=== PATIENT | male | born 1955 | race Caucasian/White ===

== ENCOUNTER 2023-01-18 09:02 | Emergency (ER) | payer OTHER, MEDICAID, SELFPAY ==
--- NOTE | ~2023-01-18 | CT_ITS ---
EXAMINATION: CT ABDOMEN AND PELVIS WITHOUT CONTRAST CLINICAL INFORMATION: Left flank pain COMPARISON: None available. TECHNIQUE: Multidetector volumetric imaging was performed from the superior aspect of the liver through the pubic symphysis. Sagittal and coronal reformatted images were obtained on the technologist's workstation. This CT examination was performed using dose optimization techniques as appropriate, variously including the following: *Automated exposure control *Adjustment of mA and/or kV according to patient size (this includes techniques or standardized protocols for targeted exams where dose is matched to indication/reason for exam; i.e. extremities or head) *Use of iterative reconstruction technique DLP: 637 mGy-cm FINDINGS: LUNG BASES: Bibasilar opacities, likely atelectasis. No pericardial or pleural effusion. LIVER, GALLBLADDER, AND BILIARY TREE: Hepatomegaly, right lobe measuring 17.9 cm. No focal hepatic lesion or biliary ductal dilatation is present. The gallbladder is unremarkable with no evidence of radiopaque gallstones, gallbladder wall thickening, or obvious pericholecystic inflammatory changes. PANCREAS: Unremarkable. SPLEEN: Unremarkable. ADRENAL GLANDS: Unremarkable. KIDNEYS AND URETERS: Small cysts in the upper pole right kidney. No renal calculi. No ureteral calculi. No hydronephrosis. Mild, left greater than right, perinephric stranding. BLADDER: Partially distended. Urinary bladder wall appears thickened/prominent . No radiopaque calculi seen. GASTROINTESTINAL TRACT: Stomach is nondistended. No small or large bowel obstruction. Small-moderate volume stool in the large colon. No acute bowel findings identified. Normal appendix. ABDOMINAL WALL: No significant hernia is appreciated. LYMPH NODES: No lymphadenopathy is identified in the abdomen or pelvis. Subcentimeter bilateral groin lymph nodes. VASCULAR: Abdominal aorta measures 3.1 cm. There is extensive severe atherosclerotic vascular calcification. PELVIC VISCERA: Prostate measures 4.4 cm transverse.. There are multiple surgical clips in the scrotal region. OSSEOUS STRUCTURES: Multilevel severe disc degenerative changes. Mild bilateral SI joint arthritis. CT/CT abdomen pelvis wo IV con IMPRESSION: 1. No evidence of renal or ureteral calculi. No hydroureteronephrosis. Mild bilateral perinephric stranding, more prominent on the left side. Clinically correlate, correlate to urinalysis. 2. Urinary bladder wall is thickened/prominent. This could be related to lack of distention versus cystitis. Clinically correlate. 3. Hepatomegaly. 4. Bibasilar atelectasis. 5. Abdominal aorta measures 3.1 cm. Recommend followup every 3 years. Reference: J Am Arya Radiol 2013; 10 (10): 789-794. 6 . Additional findings and details as above. Fleischner guidelines were followed.
[2023-01-18 09:11] VITALS: BP 143/67; BP 144/72; PULSE 56; PULSE 67; TEMP 36.8; O2SAT 97; BMI 28.7
--- NOTE | 2023-01-18 09:23 | PC.NURSE ---
pt a+o x4, he reports that he began having L flank pain yesterday, this morning bend down to pick something up off the floor and felt something pull in his back and left side, was not able to get up on his own. denies injury. hx of bypass, goes for walkd daily, denies pain prior to this incident. vss. pain 10/10 with movement.
--- NOTE | 2023-01-18 09:38 | ED.BACK ---
HPI - Back Pain/Injury General Chief Complaint: Back Pain/Injury Stated Complaint: BACK PAIN S/P TRYING TO STAND FROM LAYING PER EMS Time Seen by Provider: 01/18/23 09:17 Source: patient Limitations: no limitations History of Present Illness HPI Narrative: This is 67 years old male presented to the emergency department complaining of left flank pain left lower back pain since this morning. He has history of coronary artery disease status post CABG, he has history of hypercholesterolemia, he has history of peripheral vascular disease MD elicited complaint: back pain Onset (ago): hour(s) (3) Timing: constant Severity: moderate Quality: burning Location: lumbar spine Radiation: none Exacerbating factors: movement Relieving factors: none Associated symptoms: denies other symptoms Related Data Previous Rx's Medication Instructions Recorded cephalexin 500 mg capsule 500 mg PO Q8H 7 days #21 caps 01/18/23 oxycodone 5 mg capsule 5 mg PO Q8H PRN pain #12 caps 01/18/23 Allergies Allergy/AdvReac Type Severity Reaction Status Date / Time No Known Allergies Allergy Verified 01/18/23 09:29 Review of Systems Constitutional: Constitutional: Reports no additional constitutional complaints Cardiovascular: Cardiovascular: Reports no additional cardiovascular complaints Respiratory: Respiratory: Reports no additional respiratory complaints Musculoskeletal: Musculoskeletal: Reports as per HPI [facility] Past Medical History [facility] Narrative: CABG/coronary artery disease/hypercholesterolemia Social History Social History Alcohol intake: current Alcohol intake frequency: 3 or more drinks per day Alcohol type: hard liquor Smoked in Last 30 Days: Yes Use of substances other than those prescribed or required for medical reasons: No Advance Directives: Yes Advance Directives on File: No Physical Exam Vital Signs: Vital Signs: Last Vital Signs Temp 98.3 F 01/18/23 09:11 Pulse 55 01/18/23 14:00 Resp 13 01/18/23 14:00 BP 135/63 01/18/23 14:00 Pulse Ox 99 01/18/23 14:00 O2 Del Method Room Air 01/18/23 14:00 BMI result Body Mass Index 28.7 Patient looks well is not toxic-appearing Const: General: cooperative Nutritional Appearance: well nourished Orientation/consciousness: patient oriented x3 Limitations: no limitations HEENT: Head: Yes normal to inspection Face and sinus: Yes normal facial exam Mouth: Normal oral and palatal mucosa present Neck: Neck: Yes normal visual inspection and Yes full ROM Chest: Chest palpation & inspection: normal inspection of the chest Resp: Effort & Inspection: normal respiratory effort Auscultation: clear to auscultation bilaterally Cardio: Jugular venous distension: no JVD Rate: regular rate Rhythm: regular rhythm GI: Inspection: Yes normal to inspection Palpation (GI): Soft to palpation, not firm, nontender and no guarding Back/Spine/Pelvis: Other: Patient has tenderness in the left flank Neuro: General: patient oriented x3 Extrem: Other: Extremity examination shows pulses palpable by Doppler only Course Reevaluation(s) Reevaluation #1: doing better ambulating with walker at base line has cane and walker with the sit Time: 14:59 Reevaluation #2: The case was discussed with the rn case mgr Deirdre mercado arrange VNA and home PT. The patient wants to go home he did well with a walker in the emergency department he is very anxious to go home a comfortable with the plan of care Time: 15:36 Medications Administered Discontinued Medications Generic Name Dose Route Start Last Admin Trade Name Hugoq PRN Reason Stop Dose Admin Diazepam 2 mg 01/18/23 09:37 01/18/23 09:57 Diazepam 2 Mg Tablet PO 01/18/23 09:38 2 mg ONCE ONE Administration Hydromorphone HCl 0.5 mg 01/18/23 12:06 01/18/23 12:44 Hydromorphone Hcl 0.5 Mg/0.5 Ml Syringe IVPUSH 01/18/23 12:07 0.5 mg ONCE ONE Administration Protocol Ceftriaxone Sodium 1 gm/ 50 mls @ 100 mls/hr 01/18/23 11:21 01/18/23 14:07 Sodium Chloride IV 01/18/23 11:50 Infused ONCE ONE Infusion Ketorolac Tromethamine 15 mg 01/18/23 09:37 01/18/23 09:57 Ketorolac Tromethamine 15 Mg/Ml Vial IVPUSH 01/18/23 09:38 15 mg ONCE ONE Administration Medical Decision Making Medical Decision Making [facility] Narrative: Patient presented with lower back pain left flank pain we get the labs/UA/a CT scan Differential Diagnosis Differential Diagnoses: The differential diagnosis associated with the presentation includes Renal colic/herniated disk Admission/Observation Consideration of admission/observation: Escalation of care including admission/observation considered Consult Healthcare Provider Spoke with the rn case mgr Lab Data MDM Lab Attestation statement: I reviewed the patient's lab results. 01/18/23 09:48 01/18/23 12:37 Labs: Lab Results 01/18/23 01/18/23 01/18/23 Range/Units 09:47 09:48 09:59 WBC 8.0 (4.8-10.8) X10*3/uL RBC 4.09 L (4.60-5.80) X10*6/uL Hgb 13.9 L (14.0-18.0) g/dl Hct 40.2 L (42.0-52.0) % MCV 98.3 H (80.0-98.0) fL MCH 34.0 H (27.0-33.0) pg MCHC 34.6 (31.0-36.0) g/dl RDW 12.9 (11.0-16.0) % Plt Count 220 (160-400) X10*3/uL MPV 9.8 (9.4-12.4) fL Immature Gran % (Auto) 0.4 (0.0-0.4) % Neut % (Auto) 64.4 (45-73) % Lymph % (Auto) 21.7 (20-40) % [place] % (Auto) 8.4 (2-11) % Eos % (Auto) 4.3 H (0-4) % Baso % (Auto) 0.8 (0-2) % Lymph # (Auto) 1.7 (1.2-4.9) X10*3/uL [place] # (Auto) 0.7 (0.1-1.2) X10*3/uL Eos # (Auto) 0.3 (0.0-0.4) X10*3/uL Baso # (Auto) 0.1 (0.0-0.2) X10*3/uL Abs Immat Gran (auto) 0.03 (0.00-0.03) X10*3/uL Absolute Neuts (auto) 5.1 (2.0-8.3) x10*3/uL Absolute Nucleated RBC 0.000 (0.0-0.012) X10*3/uL Nucleated RBC % (auto) 0.0 (0.0-0.2) /100WBC ESR 19 H (0-15) MM/HR Sodium (135-145) mmol/L Potassium (3.3-5.1) mmol/L Chloride (96-108) mmol/L Carbon Dioxide (22-29) mmol/L Anion Gap (12-20) BUN (9-16) mg/dL Creatinine (0.5-1.4) mg/dL Estim Creat Clear Calc Estimated GFR Random Glucose (60-115) mg/dL Lactic Acid (0.5-2.0) mmol/L Calcium (8.4-10.2) mg/dL Total Bilirubin (0.0-1.0) mg/dL AST (5-37) U/L ALT (0-40) U/L Alkaline Phosphatase (39-117) U/L Total Protein (6.5-8.0) g/dL Albumin (3.5-5.0) g/dL Urine Color Yellow Urine Appearance Cloudy Urine pH 5.5 (5.0-9.0) Ur Specific [place] 1.020 (1.005-1.025) Urine Protein 30 (1+) H (Neg-Trace) mg/dL Urine Glucose (UA) Negative (Negative) mg/dL Urine Ketones Negative (Negative) mg/dL Urine Blood Small (1+) H (Negative) Urine Nitrite Negative (Negative) Ur Leukocyte Esterase Large (3+) H (Negative) Urine RBC 6-10 H (0-2) /HPF Urine WBC >50 H (0-5) /HPF Ur Squamous Epith Cells 0-2 (0-2) /HPF Urine Bacteria None Seen (None Seen) Hyaline Casts 0-2 (0-2) /LPF 01/18/23 01/18/23 Range/Units 12:37 12:37 WBC (4.8-10.8) X10*3/uL RBC (4.60-5.80) X10*6/uL Hgb (14.0-18.0) g/dl Hct (42.0-52.0) % MCV (80.0-98.0) fL MCH (27.0-33.0) pg MCHC (31.0-36.0) g/dl RDW (11.0-16.0) % Plt Count (160-400) X10*3/uL MPV (9.4-12.4) fL Immature Gran % (Auto) (0.0-0.4) % Neut % (Auto) (45-73) % Lymph % (Auto) (20-40) % [place] % (Auto) (2-11) % Eos % (Auto) (0-4) % Baso % (Auto) (0-2) % Lymph # (Auto) (1.2-4.9) X10*3/uL [place] # (Auto) (0.1-1.2) X10*3/uL Eos # (Auto) (0.0-0.4) X10*3/uL Baso # (Auto) (0.0-0.2) X10*3/uL Abs Immat Gran (auto) (0.00-0.03) X10*3/uL Absolute Neuts (auto) (2.0-8.3) x10*3/uL Absolute Nucleated RBC (0.0-0.012) X10*3/uL Nucleated RBC % (auto) (0.0-0.2) /100WBC ESR (0-15) MM/HR Sodium 139 (135-145) mmol/L Potassium 4.8 (3.3-5.1) mmol/L Chloride 108 (96-108) mmol/L Carbon Dioxide 23 (22-29) mmol/L Anion Gap 13 (12-20) BUN 18 H (9-16) mg/dL Creatinine 0.89 (0.5-1.4) mg/dL Estim Creat Clear Calc 103.8 Estimated GFR > 60 Random Glucose 87 (60-115) mg/dL Lactic Acid 1.0 (0.5-2.0) mmol/L Calcium 9.3 (8.4-10.2) mg/dL Total Bilirubin 0.7 (0.0-1.0) mg/dL AST 26 (5-37) U/L ALT 26 (0-40) U/L Alkaline Phosphatase 60 (39-117) U/L Total Protein 7.3 (6.5-8.0) g/dL Albumin 3.7 (3.5-5.0) g/dL Urine Color Urine Appearance Urine pH (5.0-9.0) Ur Specific [place] (1.005-1.025) Urine Protein (Neg-Trace) mg/dL Urine Glucose (UA) (Negative) mg/dL Urine Ketones (Negative) mg/dL Urine Blood (Negative) Urine Nitrite (Negative) Ur Leukocyte Esterase (Negative) Urine RBC (0-2) /HPF Urine WBC (0-5) /HPF Ur Squamous Epith Cells (0-2) /HPF Urine Bacteria (None Seen) Hyaline Casts (0-2) /LPF Independent Interpretation I performed an independent interpretation of an: CT Scan Interpretation: No hydronephrosis Radiology Impression Discussion of test interpretation with radiology: I have reviewed the radiologist's reading. Radiologist Impression: [address] [address] [address] Scan Report Signed Patient: Joao Martin MR#: [id number] : 1955 Acct:[id number] Age/Sex: 67 / M ADM Date: 01/18/23 Loc: .ED Attending Dr: Ordering Physician: Sae Metz MD Date of Service: 01/18/23 Procedure(s): CT abdomen pelvis wo IV con Accession Number(s): [id number] cc: Sae Metz MD~ EXAMINATION: CT ABDOMEN AND PELVIS WITHOUT CONTRAST? CLINICAL INFORMATION: Left flank pain? COMPARISON: None available. TECHNIQUE: Multidetector volumetric imaging was performed from the superior aspect of the liver through the pubic symphysis. Sagittal and coronal reformatted images were obtained on the technologist's workstation.? This CT examination was performed using dose optimization techniques as appropriate, variously including the following: *Automated exposure control *Adjustment of mA and/or kV according to patient size (this includes techniques or standardized protocols for targeted exams where dose is matched to indication/reason for exam; i.e. extremities or head) *Use of iterative reconstruction technique DLP: 637 mGy-cm FINDINGS: LUNG BASES: Bibasilar opacities, likely atelectasis. No pericardial or pleural effusion.? LIVER, GALLBLADDER, AND BILIARY TREE: Hepatomegaly, right lobe measuring 17.9 cm. No focal hepatic lesion or biliary ductal dilatation is present. The gallbladder is unremarkable with no evidence of radiopaque gallstones, gallbladder wall thickening, or obvious pericholecystic inflammatory changes.? PANCREAS: Unremarkable.? SPLEEN: Unremarkable.? ADRENAL GLANDS: Unremarkable.? KIDNEYS AND URETERS: Small cysts in the upper pole right kidney. No renal calculi. No ureteral calculi. No hydronephrosis. Mild, left greater than right, perinephric stranding. BLADDER: Partially distended. Urinary bladder wall appears thickened/prominent . No radiopaque calculi seen.? GASTROINTESTINAL TRACT: Stomach is nondistended. No small or large bowel obstruction. Small-moderate volume stool in the large colon. No acute bowel findings identified. Normal appendix. ABDOMINAL WALL: No significant hernia is appreciated.? LYMPH NODES: No lymphadenopathy is identified in the abdomen or pelvis. Subcentimeter bilateral groin lymph nodes. VASCULAR: Abdominal aorta measures 3.1 cm. There is extensive severe atherosclerotic vascular calcification. PELVIC VISCERA: Prostate measures 4.4 cm transverse.. There are multiple surgical clips in the scrotal region. OSSEOUS STRUCTURES: Multilevel severe disc degenerative changes. Mild bilateral SI joint arthritis.? CT/CT abdomen pelvis wo IV con IMPRESSION: ? 1. No evidence of renal or ureteral calculi. No hydroureteronephrosis. Mild bilateral perinephric stranding, more prominent on the left side. Clinically correlate, correlate to urinalysis. ? 2. Urinary bladder wall is thickened/prominent. This could be related to lack of distention versus cystitis. Clinically correlate. ? 3. Hepatomegaly. ? 4. Bibasilar atelectasis. ? 5. Abdominal aorta measures 3.1 cm. Recommend followup every 3 years. Reference: J Am Arya Radiol 2013; 10 (10): 789-794.? ? 6 . Additional findings and details as above. ? Fleischner guidelines were followed. Discharge Plan Discharge Clinical Impression: Acute UTI, Back pain Patient Disposition: Home, Self-Care Instructions: Urinary Tract Infection in Men (ED) Additional Instructions: Follow-up with your primary care physician call tomorrow make an appointment return if you worse Prescriptions: New cephalexin 500 mg capsule 500 mg PO Q8H 7 Days Qty: 21 0RF oxycodone 5 mg capsule 5 mg PO Q8H PRN (Reason: pain) Qty: 12 0RF Rx Instructions: Partial Fill upon patient request. Referrals: Physician,Unknown J [Primary Care Provider] - 2 days
[2023-01-18 09:53] LABS: MANUAL DIFF FLAG NO
[2023-01-18] MEDS: diazePAM 2 MG TABLET PO (09:57)
[2023-01-18] MEDS: Ketorolac Tromethamine 15 MG/ML VIAL IVPUSH (09:57)
[2023-01-18 10:09] LABS: Basophils Absolute Auto 0.1 X10*3/uL (0.0-0.2); Basophils Percent Auto 0.8 % (0-2); Eosinophils Absolute Auto 0.3 X10*3/uL (0.0-0.4); Eosinophils Percent Auto 4.3 % (0-4); Hematocrit 40.2 % (42.0-52.0); Hemoglobin 13.9 g/dl (14.0-18.0); Imm Gran Abs Auto 0.03 X10*3/uL (0.00-0.03); Imm Gran Pct Auto 0.4 % (0.0-0.4); Lymphocytes Absolute Auto 1.7 X10*3/uL (1.2-4.9); Lymphocytes Percent Auto 21.7 % (20-40); Mean Corpuscular HGB Conc 34.6 g/dl (31.0-36.0); Mean Corpuscular Volume 98.3 fL (80.0-98.0); Mean Platelet Volume 9.8 fL (9.4-12.4); Monocytes Absolute Auto 0.7 X10*3/uL (0.1-1.2); Monocytes Percent Auto 8.4 % (2-11); Neutrophils Absolute Auto 5.1 x10*3/uL (2.0-8.3); Neutrophils Percent Auto 64.4 % (45-73); Platelet Count 220 X10*3/uL (160-400); Red Blood Count 4.09 X10*6/uL (4.60-5.80); Red Cell Distribution Width 12.9 % (11.0-16.0)
[2023-01-18 10:15] LABS: Appearance Urine Cloudy; Color Urine Yellow; Glucose Urine UA Negative (Negative); Leukocyte Esterase Urine Large (3+) (Negative); Nitrite Urine Negative (Negative); PH 5.5 (5.0-9.0); UMIC TRIGGER UACC YES; Urine Blood Small (1+) (Negative); Urine Ketones Negative (Negative); Urine Protein 30 (1+) mg/dL (Neg-Trace)
[2023-01-18 10:18] LABS: Bacteria Urine None Seen (None Seen); Hyaline Casts Urine 0-2 /LPF (0-2); Squamous Epithelial Cell Urine 0-2 /HPF (0-2); UACC Culture Trigger YES; WBC Urine >50 /HPF (0-5)
[2023-01-18 10:45] LABS: Erythrocyte Sedimentation Rate 19 MM/HR (0-15)
[2023-01-18] MEDS: HYDROmorphone HCl 0.5 MG/0.5 ML SYRINGE IVPUSH (12:44)
[2023-01-18] MEDS: cefTRIAXone sodium 1 GM in 0.9 % Sodium Chloride 50 ML IV (12:48)
[2023-01-18 12:52] VITALS: BP 145/79; PULSE 54; RESP 13; O2SAT 97
--- NOTE | 2023-01-18 12:53 | PC.NURSE ---
pain meds given, iv antibiotic started as ordered. pt resting comfortably, no apparent distress. 10/10 pain at this time.
[2023-01-18 12:58] LABS: Anion Gap 13 (12-20)
[2023-01-18 13:03] LABS: Alanine Aminotransferase 26 U/L (0-40); Albumin Level 3.7 g/dL (3.5-5.0); Alkaline Phosphatase 60 U/L (39-117); Aspartate Amino Transferase 26 U/L (5-37); Bilirubin Total 0.7 mg/dL (0.0-1.0); Blood Urea Nitrogen 18 mg/dL (9-16); Calcium 9.3 mg/dL (8.4-10.2); Carbon Dioxide 23 mmol/L (22-29); Chloride 108 mmol/L (96-108); Creatinine Clr Calc Pharmacy 103.8; Estimated Glomerular Filt Rate > 60; Glucose Random 87 mg/dL (60-115); Potassium 4.8 mmol/L (3.3-5.1); Sodium 139 mmol/L (135-145); Total Protein 7.3 g/dL (6.5-8.0)
[2023-01-18 14:00] VITALS: BP 135/63; PULSE 55; RESP 13; O2SAT 99
--- NOTE | 2023-01-18 16:06 | PC.NURSE ---
pt cleared for discharge, pt does not have ride home and does not qualified for chair van. will reach out to mechanical maintenance supervisor regarding lyft voucher.
--- NOTE | 2023-01-18 17:33 | PC.NURSE ---
pt ambulated to waiting room using walker with staff in close contact. waiting on lyft.
--- NOTE | 2023-01-20 10:14 | MHC.CM.ED ---
LATE ENTRY FROM 01/19 AT 12PM: Received case management consult over the weekend requesting referral to VNA be made. T/W spoke with patient via telephone. Patient aware referral will have to be broadcasted due to insurance ([employer]). [facility] is able to accept patient.
== END 2023-01-18 18:30 | disposition home or self-care (01) ==
PROVIDERS: Emergency Provider Emergency Medicine; PCP Pediatrics
DX: N39.0 Urinary tract infection, site not specified (principal); M54.50 Low back pain, unspecified; R10.9 Unspecified abdominal pain; Z79.899 Other long term (current) drug therapy
CPT/HCPCS: 36415; 74176; 80053; 81001; 83605; 85025; 85652; 87040; 87086; 87147; 96365; 96375; 99284; 99285; J0696; J1170; J1885

== ENCOUNTER 2023-01-21 11:40 | Emergency (ER) | payer OTHER, MEDICARE, MEDICAID, SELFPAY ==
[2023-01-21 11:58] VITALS: BP 150/80; PULSE 56; O2SAT 99
--- NOTE | 2023-01-21 11:58 | ED_ITS ---
HPI - Abdominal Pain General Chief Complaint: Abdominal Pain <JOSE Monte - Last Filed: 01/21/23 12:00> Stated Complaint: R side flank pain per EMS <JOSE Monte - Last Filed: 01/21/23 12:00> Time Seen by Provider: 01/21/23 17:05 <JOSE Monte - Last Filed: 01/21/23 12:00> Source: patient, RN notes reviewed and old records reviewed <Richy Short - Last Filed: 01/21/23 17:27> Mode of arrival: EMS <Richy Short - Last Filed: 01/21/23 17:27> Limitations: no limitations <Richy Short - Last Filed: 01/21/23 17:27> History of Present Illness HPI narrative: 67-year-old male presents for evaluation of left lower back/ left flank p ain. patient was seen here 3 days ago for similar. He had a thorough workup that included labs, UA and a CT scan the abdomen pelvis. He was diagnosed with an uncomplicated UTI the patient was discharged with cephalexin and oxycodone the patient reports he was unable to take any of his medications because I could not get to the pharmacy to get. He reports that his aide will be able to get his prescriptions either tonight or tomorrow at the latest he has been taking Advil for his pain in the meantime which has had minimal relief denies any fevers, chills <Richy Short - Last Filed: 01/21/23 17:27> Related Data Home Medications: Previous Rx's Medication Instructions Recorded cephalexin 500 mg capsule 500 mg PO Q8H 7 days #21 caps 01/18/23 oxycodone 5 mg capsule 5 mg PO Q8H PRN pain #12 caps 01/18/23 <JOSE Monte - Last Filed: 01/21/23 12:00> Allergies/Adverse Reactions: Allergies Allergy/AdvReac Type Severity Reaction Status Date / Time No Known Allergies Allergy Verified 01/18/23 09:29 <JOSE Monte - Last Filed: 01/21/23 12:00> Review of Systems Constitutional: Reports as per HPI, Denies chills, Denies fatigue, Denies fever(s) and Denies headache(s) <Richy Short - Last Filed: 01/21/23 17:27> Denies headache(s) <Richy Short - Last Filed: 01/21/23 17:27> Cardiovascular: Denies chest pain and Denies dyspnea <Richy Short - Last Filed: 01/21/23 17:27> Respiratory: Denies cough and Denies dyspnea <Richy Short - Last Filed: 01/21/23 17:27> Gastrointestinal: Denies abdominal pain, Denies constipation and Denies vomiting <Richy Short - Last Filed: 01/21/23 17:27> Genitourinary: Denies difficulty urinating <Richy Short - Last Filed: 01/21/23 17:27> Denies headache(s) and Denies focal weakness <Richy Short - Last Filed: 01/21/23 17:27> Endocrine: Denies fatigue <Richy Short - Last Filed: 01/21/23 17:27> [facility] Social History Social History: Social History Alcohol intake: current Alcohol intake frequency: 0-2 drinks per day Alcohol type: hard liquor Smoked in Last 30 Days: Yes Use of substances other than those prescribed or required for medical reasons: Yes Substance Use Type: Marijuana Advance Directives: Yes Advance Directives on File: Yes Advance Directives Date on File: 01/19/23 <JOSE Monte - Last Filed: 01/21/23 12:00> Physical Exam ED Vital Signs: Vital Signs - 24 hr 01/21/23 12:23 01/21/23 17:14 Temperature 97.7 F Pulse Rate 55 98 Respiratory Rate 16 18 Blood Pressure 136/72 156/69 H Pulse Oximetry 99 99 Oxygen Delivery Method Room Air Room Air BMI result Body Mass Index 29.5 <JOSE Monte - Last Filed: 01/21/23 12:00> Vital Signs - 24 hr 01/21/23 12:23 01/21/23 17:14 Temperature 97.7 F Pulse Rate 55 98 Respiratory Rate 16 18 Blood Pressure 136/72 156/69 H Pulse Oximetry 99 99 Oxygen Delivery Method Room Air Room Air BMI result Body Mass Index 29.5 <Richy Short - Last Filed: 01/21/23 17:27> Const General: comfortable, no acute distress, alert, awake and poor hygiene; No well groomed <Richy Short - Last Filed: 01/21/23 17:27> Nutritional Appearance: well nourished <Richy Short - Last Filed: 01/21/23 17:27> Orientation/consciousness: patient oriented x3 <Richy Gaspary - Last Filed: 01/21/23 17:27> Resp Effort & Inspection: normal respiratory effort, able to speak in complete sentences, no audible wheezes and not labored <Richy Short - Last Filed: 01/21/23 17:27> Auscultation: clear to auscultation bilaterally <Richy Short - Last Filed: 01/21/23 17:27> Cardio Rate: regular rate <Richy Short - Last Filed: 01/21/23 17:27> Rhythm: regular rhythm <Richy Short - Last Filed: 01/21/23 17:27> GI Inspection: No distended <Richy Short - Last Filed: 01/21/23 17:27> Palpation (GI): Soft to palpation, not firm, nontender, no guarding and not rigid <Richy Short - Last Filed: 01/21/23 17:27> Auscultation: normoactive bowel sounds <Richy Short - Last Filed: 01/21/23 17:27> Back/Spine/Pelvis Other: patient is tender to palpation in the left lumbar paraspinous region. No CVA tenderness. <Richy Short - Last Filed: 01/21/23 17:27> Skin General skin exam: no rashes or lesions noted and elasticity normal <Richy Short - Last Filed: 01/21/23 17:27> Neuro General: patient oriented x3 <Richy Short - Last Filed: 01/21/23 17:27> Cranial nerves: Yes CN's II-XII intact bilaterally and Yes Bilaterally intact EOM present <Richy Short - Last Filed: 01/21/23 17:27> Cognition (Neuro): normal cognition <Richy Short - Last Filed: 01/21/23 17:27> Extrem Other: Moving all extremities well without any obvious deformities <Richy Short - Last Filed: 01/21/23 17:27> Course Course Course Narrative: RME - 67 yo male who was seen here on 01/18 for UTI presents to the ER for evaluation of worsening left flank pain. he did not take his antibiotics that were prescribed. Labs reviewed and his urine culture grew group B strep. Poorly kempt and smells of urine. Plan: labs, lactic and blood cultures. <JOSE Monte - Last Filed: 01/21/23 12:00> Medical Decision Making Medical Decision Making [facility] Narrative: Patient has tenderness in the left lumbar region, not quite the left flank. I feel the patient's back pain is more musculoskeletal and not related to his UTI. I reviewed the patient's workup from 3 days ago. He did appear to have a mild UTI. The culture resulted which shows strep agalactiae group B. T herefore, cephalexin he was prescribed should be adequate coverage. The patient is confident that he will be able to get his prescription by tomorrow. His vital signs are currently stable and his labs are unchanged from yesterday. There is no evidence of sepsis. We will give the patient a dose of ceftriaxone IV and a dose of the oxycodone he was prescribed and he will be discharged. he is comfortable with this plan. <Richy Short - Last Filed: 01/21/23 17:27> Differential Diagnosis UTI Pyelonephritis Muscle strain Obstructive uropathy <Richy Short - Last Filed: 01/21/23 17:27> Lab Data [facility] Lab Attestation statement: I reviewed the patient's lab results. <Richy BrowneKurtPrince William - Last Filed: 01/21/23 17:27> Result Diagrams: 01/21/23 12:20 01/21/23 12:20 <JOSE Monte - Last Filed: 01/21/23 12:00> Labs: Lab Results 01/21/23 01/21/23 01/21/23 Range/Units 12:20 12:20 12:20 WBC 8.9 (4.8-10.8) X10*3/uL RBC 4.06 L (4.60-5.80) X10*6/uL Hgb 13.6 L (14.0-18.0) g/dl Hct 40.5 L (42.0-52.0) % MCV 99.8 H (80.0-98.0) fL MCH 33.5 H (27.0-33.0) pg MCHC 33.6 (31.0-36.0) g/dl RDW 13.2 (11.0-16.0) % Plt Count 207 (160-400) X10*3/uL MPV 10.0 (9.4-12.4) fL Immature Gran % (Auto) 0.2 (0.0-0.4) % Neut % (Auto) 61.5 (45-73) % Lymph % (Auto) 27.4 (20-40) % [place] % (Auto) 7.9 (2-11) % Eos % (Auto) 2.4 (0-4) % Baso % (Auto) 0.6 (0-2) % Lymph # (Auto) 2.4 (1.2-4.9) X10*3/uL [place] # (Auto) 0.7 (0.1-1.2) X10*3/uL Eos # (Auto) 0.2 (0.0-0.4) X10*3/uL Baso # (Auto) 0.1 (0.0-0.2) X10*3/uL Abs Immat Gran (auto) 0.02 (0.00-0.03) X10*3/uL Absolute Neuts (auto) 5.5 (2.0-8.3) x10*3/uL Absolute Nucleated RBC 0.000 (0.0-0.012) X10*3/uL Nucleated RBC % (auto) 0.0 (0.0-0.2) /100WBC Sodium 138 (135-145) mmol/L Potassium 5.3 H (3.3-5.1) mmol/L Chloride 108 (96-108) mmol/L Carbon Dioxide 21 L (22-29) mmol/L Anion Gap 14 (12-20) BUN 22 H (9-16) mg/dL Creatinine 0.92 (0.5-1.4) mg/dL Estim Creat Clear Calc 101.7 Estimated GFR > 60 Random Glucose 84 (60-115) mg/dL Lactic Acid 1.7 (0.5-2.0) mmol/L Calcium 8.9 (8.4-10.2) mg/dL Magnesium 2.0 (1.6-2.6) mg/dL Total Bilirubin 0.5 (0.0-1.0) mg/dL Direct Bilirubin 0.2 (0.0-0.5) mg/dL AST 40 H (5-37) U/L ALT 31 (0-40) U/L Alkaline Phosphatase 55 (39-117) U/L Total Protein 7.7 (6.5-8.0) g/dL Albumin 3.9 (3.5-5.0) g/dL <JOSE Monte - Last Filed: 01/21/23 12:00> Lab Results 01/21/23 01/21/23 01/21/23 Range/Units 12:20 12:20 12:20 WBC 8.9 (4.8-10.8) X10*3/uL RBC 4.06 L (4.60-5.80) X10*6/uL Hgb 13.6 L (14.0-18.0) g/dl Hct 40.5 L (42.0-52.0) % MCV 99.8 H (80.0-98.0) fL MCH 33.5 H (27.0-33.0) pg MCHC 33.6 (31.0-36.0) g/dl RDW 13.2 (11.0-16.0) % Plt Count 207 (160-400) X10*3/uL MPV 10.0 (9.4-12.4) fL Immature Gran % (Auto) 0.2 (0.0-0.4) % Neut % (Auto) 61.5 (45-73) % Lymph % (Auto) 27.4 (20-40) % [place] % (Auto) 7.9 (2-11) % Eos % (Auto) 2.4 (0-4) % Baso % (Auto) 0.6 (0-2) % Lymph # (Auto) 2.4 (1.2-4.9) X10*3/uL [place] # (Auto) 0.7 (0.1-1.2) X10*3/uL Eos # (Auto) 0.2 (0.0-0.4) X10*3/uL Baso # (Auto) 0.1 (0.0-0.2) X10*3/uL Abs Immat Gran (auto) 0.02 (0.00-0.03) X10*3/uL Absolute Neuts (auto) 5.5 (2.0-8.3) x10*3/uL Absolute Nucleated RBC 0.000 (0.0-0.012) X10*3/uL Nucleated RBC % (auto) 0.0 (0.0-0.2) /100WBC Sodium 138 (135-145) mmol/L Potassium 5.3 H (3.3-5.1) mmol/L Chloride 108 (96-108) mmol/L Carbon Dioxide 21 L (22-29) mmol/L Anion Gap 14 (12-20) BUN 22 H (9-16) mg/dL Creatinine 0.92 (0.5-1.4) mg/dL Estim Creat Clear Calc 101.7 Estimated GFR > 60 Random Glucose 84 (60-115) mg/dL Lactic Acid 1.7 (0.5-2.0) mmol/L Calcium 8.9 (8.4-10.2) mg/dL Magnesium 2.0 (1.6-2.6) mg/dL Total Bilirubin 0.5 (0.0-1.0) mg/dL Direct Bilirubin 0.2 (0.0-0.5) mg/dL AST 40 H (5-37) U/L ALT 31 (0-40) U/L Alkaline Phosphatase 55 (39-117) U/L Total Protein 7.7 (6.5-8.0) g/dL Albumin 3.9 (3.5-5.0) g/dL <Richy Short - Last Filed: 01/21/23 17:27> Discharge Plan Discharge Clinical Impression: Acute UTI, Back pain <JOSE Monte - Last Filed: 01/21/23 12:00> Patient Disposition: Home, Self-Care <JOSE Monte - Last Filed: 01/21/23 12:00> Instructions: Urinary Tract Infection in Men (ED) <JOSE Monte - Last Filed: 01/21/23 12:00> Additional Instructions: your workup today was unchanged from 3 days ago. It is important that you get your prescriptions picked up to treat your back pain and your UTI. you were given a dose of IV antibiotics today, but you need to start your antibiotics tomorrow follow-up with your primary doctor <JOSE Monte - Last Filed: 01/21/23 12:00> Prescriptions: No Action cephalexin 500 mg capsule 500 mg PO Q8H 7 Days Qty: 21 0RF oxycodone 5 mg capsule 5 mg PO Q8H PRN (Reason: pain) Qty: 12 0RF Rx Instructions: Partial Fill upon patient request. <JOSE Monte - Last Filed: 01/21/23 12:00>
[2023-01-21 12:23] VITALS: BP 136/72; PULSE 55; RESP 16; TEMP 36.5; O2SAT 99; BMI 29.5
[2023-01-21 12:27] LABS: MANUAL DIFF FLAG NO
[2023-01-21 12:32] LABS: Basophils Absolute Auto 0.1 X10*3/uL (0.0-0.2); Basophils Percent Auto 0.6 % (0-2); Eosinophils Absolute Auto 0.2 X10*3/uL (0.0-0.4); Eosinophils Percent Auto 2.4 % (0-4); Hematocrit 40.5 % (42.0-52.0); Hemoglobin 13.6 g/dl (14.0-18.0); Imm Gran Abs Auto 0.02 X10*3/uL (0.00-0.03); Imm Gran Pct Auto 0.2 % (0.0-0.4); Lymphocytes Absolute Auto 2.4 X10*3/uL (1.2-4.9); Lymphocytes Percent Auto 27.4 % (20-40); Mean Corpuscular HGB Conc 33.6 g/dl (31.0-36.0); Mean Corpuscular Hemoglobin 33.5 pg (27.0-33.0); Mean Corpuscular Volume 99.8 fL (80.0-98.0); Monocytes Absolute Auto 0.7 X10*3/uL (0.1-1.2); Monocytes Percent Auto 7.9 % (2-11); Neutrophils Absolute Auto 5.5 x10*3/uL (2.0-8.3); Neutrophils Percent Auto 61.5 % (45-73); Platelet Count 207 X10*3/uL (160-400); Red Blood Count 4.06 X10*6/uL (4.60-5.80); Red Cell Distribution Width 13.2 % (11.0-16.0); White Blood Count 8.9 X10*3/uL (4.8-10.8)
[2023-01-21 12:39] LABS: Lactic Acid 1.7 mmol/L (0.5-2.0)
[2023-01-21 12:48] LABS: Alanine Aminotransferase 31 U/L (0-40); Albumin Level 3.9 g/dL (3.5-5.0); Alkaline Phosphatase 55 U/L (39-117); Anion Gap 14 (12-20); Aspartate Amino Transferase 40 U/L (5-37); Bilirubin Direct 0.2 mg/dL (0.0-0.5); Bilirubin Total 0.5 mg/dL (0.0-1.0); Blood Urea Nitrogen 22 mg/dL (9-16); Calcium 8.9 mg/dL (8.4-10.2); Carbon Dioxide 21 mmol/L (22-29); Chloride 108 mmol/L (96-108); Creatinine Clr Calc Pharmacy 101.7; Estimated Glomerular Filt Rate > 60; Glucose Random 84 mg/dL (60-115); Potassium 5.3 mmol/L (3.3-5.1); Sodium 138 mmol/L (135-145); Total Protein 7.7 g/dL (6.5-8.0)
[2023-01-21 17:14] VITALS: BP 156/69; PULSE 98; RESP 18; O2SAT 99
--- NOTE | 2023-01-21 17:18 | PC.NURSE ---
alert and oriented. complains of back pain. Discharged 01/18 from ed with script for abt for uti. Did not flower picker script - stating home health aid was going to pick it up today. Incontinent of urine.
[2023-01-21] MEDS: oxyCODONE HCl Immed Release 5 MG TABLET PO (17:50)
[2023-01-21] MEDS: cefTRIAXone sodium 1 GM in 0.9 % Sodium Chloride 50 ML IV (17:51)
[2023-01-21 18:15] LABS: Appearance Urine Clear; Color Urine Yellow; Glucose Urine UA Negative (Negative); Leukocyte Esterase Urine Trace (Negative); Nitrite Urine Negative (Negative); Specific Gravity - Urine 1.015 (1.005-1.025); UMIC TRIGGER UACC YES; Urine Blood Trace (Negative); Urine Ketones Negative (Negative); Urine Protein Negative (Neg-Trace)
[2023-01-21 18:20] LABS: Bacteria Urine None Seen (None Seen); RBC Urine 0-2 /HPF (0-2); Squamous Epithelial Cell Urine 0-2 /HPF (0-2); UACC Culture Trigger YES
== END 2023-01-21 19:27 | disposition home or self-care (01) ==
PROVIDERS: Physician Assistant; Emergency Provider Internal Medicine
DX: N39.0 Urinary tract infection, site not specified (principal); M54.50 Low back pain, unspecified
CPT/HCPCS: 36415; 80048; 80076; 81001; 83605; 83735; 85025; 87040; 87086; 96365; 99284; 99285; J0696

== ENCOUNTER 2024-03-26 09:18 | Inpatient (IN) | payer MEDICARE, SELFPAY ==
--- NOTE | ~2024-03-26 | CT_ITS ---
EXAMINATION: CT FOOT WITH CONTRAST, RIGHT CLINICAL INFORMATION: Wound infection, evaluate abscess. COMPARISON: None available. TECHNIQUE: CT scan right foot is performed with contrast. Contrast dose 85 mL of Omnipaque [address] examination was performed using dose optimization techniques as appropriate, variously including the following: *Automated exposure control *Adjustment of mA and/or kV according to patient size (this includes techniques or standardized protocols for targeted exams where dose is matched to indication/reason for exam; i.e. extremities or head) *Use of iterative reconstruction technique DLP: 156 mGy-cm FINDINGS: There is focal increased density in the plantar medial soft tissues overlying the distal phalanx of the great toe. No overlying soft tissue defect/ulceration. There is fluidlike density circumferentially about the foot and visualized lower leg with appearance compatible with edema and/or cellulitis or a combination of these. I do not see a focal mass or fluid collection. Muscles/tendons: There is generalized fatty infiltration throughout the muscles of the foot which could reflect sequela of denervation myositis. Plantar fascia: Unremarkable. Bone/joints: Mild arthrosis of the first metatarsophalangeal joint. Otherwise unremarkable. Arterial calcification present. CT/CT foot RT w IV con IMPRESSION: 1. Soft tissue changes compatible with edema and/or cellulitis. 2. No evidence for abscess. 3. No evidence for osteomyelitis. 4. Fatty infiltration of the muscles of the foot which could reflect sequela of denervation myositis. 5. Mild arthrosis of the first metatarsophalangeal joint. 6. There is fluidlike density circumferentially about the foot and visualized lower leg with appearance compatible edema and/or cellulitis or combination of these. 7. There is focal increased density in the plantar medial soft tissues overlying the distal phalanx of the great toe which could reflect focal cellulitis. No overlying soft tissue defect/ulceration.
--- NOTE | ~2024-03-26 | XR_ITS ---
EXAMINATION: XR FOOT, RIGHT CLINICAL INFORMATION: Pain and swelling COMPARISON: None available. TECHNIQUE: AP, lateral, and oblique views of the right foot. FINDINGS: Bones are osteopenic. There is generalized soft tissue edema of the foot. No acute osseous destructive changes are seen. No acute fractures. XR/XR foot RT min 3V IMPRESSION: Soft tissue edema. No acute osseous process.
[2024-03-26 09:25] VITALS: BP 162/94; PULSE 77; O2SAT 95
[2024-03-26 09:34] VITALS: BP 154/68; PULSE 77; RESP 15; TEMP 36.9; O2SAT 99; BMI 29.5
--- NOTE | 2024-03-26 09:49 | ED_ITS ---
HPI - Wound/Laceration General Chief Complaint: Wound/Laceration Stated Complaint: OPEN WOUND R TOES W/MAGGOTS PER EMS Time Seen by Provider: 03/26/24 09:23 History of Present Illness HPI narrative: Patient is a 68-year-old male presents today with having right foot having maggots crawling out of them. Positive mild pain over the toes. Patient have not cleaned them in the long time. There has no fever no chills. He denies any history of diabetes. He is from home. Had a history of something similar and lost his left great toe in the past. Related Data Home Medications ?Medication ?Instructions ?Recorded ?Confirmed atorvastatin 40 mg tablet 40 mg PO DAILY 03/26/24 03/26/24 Previous Rx's ?Medication ?Instructions ?Recorded cephalexin 500 mg capsule 500 mg PO Q8H 7 days #21 caps 01/18/23 oxycodone 5 mg capsule 5 mg PO Q8H PRN pain #12 caps 01/18/23 Allergies Allergy/AdvReac Type Severity Reaction Status Date / Time No Known Allergies Allergy Verified 03/26/24 09:44 Review of Systems 2 Review of Systems: Positive wounds to the right foot Yes all other systems are reviewed and are negative PMFSH Past Medical History Attestation statement: The following information was validated with the patient. Social History Social History Alcohol intake: current Alcohol intake frequency: 3 or more drinks per day Alcohol type: beer and other Smoked in Last 30 Days: Yes Use of substances other than those prescribed or required for medical reasons: Yes Substance Use Type: Marijuana Substance Use Frequency: Socially Advance Directives: Yes Advance Directives on File: Yes Advance Directives Date on File: 01/19/23 Physical Exam 2 Vital Signs: Vital Signs: Last Vital Signs Temp 98.0 F 03/26/24 12:30 Pulse 70 03/26/24 12:30 Resp 15 03/26/24 12:30 BP 159/82 H 03/26/24 12:30 Pulse Ox 99 03/26/24 12:30 O2 Del Method Room Air 03/26/24 12:30 BMI result Body Mass Index 29.5 Appearance: Alert. Oriented X3. No acute distress. Eyes: Pupils equal, round and reactive to light. ENT: Pharynx normal. Neck: Normal inspection. Neck supple. No lymph nodes noted. No crepitus CVS: Normal heart rate and rhythm. Pulses normal. Normal S1 and S2 Respiratory: No respiratory distress. Breath sounds normal. No Wheezing. No rales Abdomen: Soft and nontender. No rigidity. No distention. good BS x4 Skin: Skin warm and dry. Normal skin color. Normal skin turgor. Extremities: Foul smelling odor coming from the right foot. There is erythema over the 2nd through the 5th toe. With a moist appearance inter webspace between digits 2 through 5. Significant amount of maggots was found between digits 3 and 4, 4 and 5. Distal pulses at dorsalis pedis was intact. Sensation intact. Motor intact. Neuro: Oriented X 3. No motor deficit. No sensory deficit. Moving all extermities. No slurred speech Medications Administered Discontinued Medications Generic Name Dose Route Start Last Admin Trade Name Freq PRN Reason Stop Dose Admin Ampicillin Sodium/Sulbactam 100 mls @ 200 mls/hr 03/26/24 11:03 03/26/24 12:20 Sodium 3 gm/ Sodium Chloride IV 03/26/24 11:32 200 mls/hr ONCE ONE Administration Medical Decision Making Medical Decision Making [facility] Narrative: Patient's foot was cleaned copiously. Magnet was removed. There is a slight redness and warmth to touch over the digits. Labs ordered. X-rays ordered. Positive elevated white count. Signs of infection in the toes. With extremely foul odor. Maggots was removed. Antibiotics started. Cultures are obtained. Will admit patient for further evaluation. Patient's CRP and sed rate were elevated question secondary to osteo. White count was 14.5. Differential Diagnosis Differential Diagnoses: The differential diagnosis associated with the presentation includes Cellulitis, osteomyelitis Admission/Observation Consideration of admission/observation: Escalation of care including admission/observation considered Consult Healthcare Provider Management of the patient was discussed with: Hospitalist Lab Data [facility] Lab Attestation statement: I reviewed the patient's lab results. 03/26/24 10:07 03/26/24 10:07 Labs: Lab Results 03/26/24 03/26/24 Range/Units 10:07 10:11 WBC 14.1 H (4.8-10.8) X10*3/uL RBC 3.67 L (4.60-5.80) X10*6/uL Hgb 12.8 L (14.0-18.0) g/dl Hct 36.4 L (42.0-52.0) % MCV 99.2 H (80.0-98.0) fL MCH 34.9 H (27.0-33.0) pg MCHC 35.2 (31.0-36.0) g/dl RDW 13.3 (11.0-16.0) % Plt Count 187 (160-400) X10*3/uL MPV 9.9 (9.4-12.4) fL Immature Gran % (Auto) 0.4 (0.0-0.4) % Neut % (Auto) 78.6 H (45-73) % Lymph % (Auto) 9.7 L (20-40) % [place] % (Auto) 7.9 (2-11) % Eos % (Auto) 2.9 (0-4) % Baso % (Auto) 0.5 (0-2) % Lymph # (Auto) 1.4 (1.2-4.9) X10*3/uL [place] # (Auto) 1.1 (0.1-1.2) X10*3/uL Eos # (Auto) 0.4 (0.0-0.4) X10*3/uL Baso # (Auto) 0.1 (0.0-0.2) X10*3/uL Abs Immat Gran (auto) 0.06 H (0.00-0.03) X10*3/uL Absolute Neuts (auto) 11.1 H (2.0-8.3) x10*3/uL Absolute Nucleated RBC 0.000 (0.0-0.012) X10*3/uL Nucleated RBC % (auto) 0.0 (0.0-0.2) /100WBC ESR 20 H (0-15) MM/HR Sodium 140 (135-145) mmol/L Potassium 4.0 (3.3-5.1) mmol/L Chloride 109 H (96-108) mmol/L Carbon Dioxide 23 (22-29) mmol/L Anion Gap 12 (12-20) BUN 15 (9-16) mg/dL Creatinine 0.93 (0.5-1.4) mg/dL Estim Creat Clear Calc 99.2 Estimated GFR > 60 Random Glucose 117 H (60-115) mg/dL Lactic Acid 1.5 (0.5-2.0) mmol/L Calcium 9.0 (8.4-10.2) mg/dL Total Bilirubin 0.7 (0.0-1.0) mg/dL Direct Bilirubin 0.3 (0.0-0.5) mg/dL AST 29 (5-37) U/L ALT 33 (0-40) U/L Alkaline Phosphatase 55 (39-117) U/L C-Reactive Protein 0.86 H (< or = 0.50) mg/dL Total Protein 6.9 (6.5-8.0) g/dL Albumin 3.6 (3.5-5.0) g/dL Independent Interpretation I performed an independent interpretation of an: Plain X-Ray (No gross fracture noted) Radiology Impression Discussion of test interpretation with radiology: I have reviewed the radiologist's reading. Independent Historian Clinical information obtained from an independent historian. History obtained from or confirmed by: EMS Discharge Plan Discharge Clinical Impression: Cellulitis Patient Disposition: Admitted As Inpatient Prescriptions: No Action cephalexin 500 mg capsule 500 mg PO Q8H 7 Days Qty: 21 0RF oxycodone 5 mg capsule 5 mg PO Q8H PRN (Reason: pain) Qty: 12 0RF Rx Instructions: Partial Fill upon patient request. atorvastatin 40 mg tablet 40 mg PO DAILY Print Language: Bulgarian
[2024-03-26 10:20] LABS: MANUAL DIFF FLAG NO
[2024-03-26 10:21] LABS: Basophils Absolute Auto 0.1 X10*3/uL (0.0-0.2); Basophils Percent Auto 0.5 % (0-2); Eosinophils Absolute Auto 0.4 X10*3/uL (0.0-0.4); Eosinophils Percent Auto 2.9 % (0-4); Hematocrit 36.4 % (42.0-52.0); Hemoglobin 12.8 g/dl (14.0-18.0); Imm Gran Abs Auto 0.06 X10*3/uL (0.00-0.03); Imm Gran Pct Auto 0.4 % (0.0-0.4); Lymphocytes Absolute Auto 1.4 X10*3/uL (1.2-4.9); Lymphocytes Percent Auto 9.7 % (20-40); Mean Corpuscular HGB Conc 35.2 g/dl (31.0-36.0); Mean Corpuscular Hemoglobin 34.9 pg (27.0-33.0); Mean Corpuscular Volume 99.2 fL (80.0-98.0); Mean Platelet Volume 9.9 fL (9.4-12.4); Monocytes Absolute Auto 1.1 X10*3/uL (0.1-1.2); Monocytes Percent Auto 7.9 % (2-11); Neutrophils Absolute Auto 11.1 x10*3/uL (2.0-8.3); Neutrophils Percent Auto 78.6 % (45-73); Platelet Count 187 X10*3/uL (160-400); Red Blood Count 3.67 X10*6/uL (4.60-5.80); Red Cell Distribution Width 13.3 % (11.0-16.0); White Blood Count 14.1 X10*3/uL (4.8-10.8)
[2024-03-26 10:35] LABS: Lactic Acid 1.5 mmol/L (0.5-2.0)
[2024-03-26 10:39] LABS: Alanine Aminotransferase 33 U/L (0-40); Albumin Level 3.6 g/dL (3.5-5.0); Alkaline Phosphatase 55 U/L (39-117); Anion Gap 12 (12-20); Aspartate Amino Transferase 29 U/L (5-37); Bilirubin Direct 0.3 mg/dL (0.0-0.5); Bilirubin Total 0.7 mg/dL (0.0-1.0); Blood Urea Nitrogen 15 mg/dL (9-16); C Reactive Protein 0.86 mg/dL (< or = 0.50); Carbon Dioxide 23 mmol/L (22-29); Chloride 109 mmol/L (96-108); Creatinine Clr Calc Pharmacy 99.2; Estimated Glomerular Filt Rate > 60; Glucose Random 117 mg/dL (60-115); Sodium 140 mmol/L (135-145); Total Protein 6.9 g/dL (6.5-8.0)
[2024-03-26 11:06] LABS: Erythrocyte Sedimentation Rate 20 MM/HR (0-15)
[2024-03-26] MEDS: Ampicillin Sodium/Sulbactam Na 3 GM in 0.9 % Sodium Chloride 100 ML IV (12:20)
[2024-03-26 12:30] VITALS: BP 159/82; PULSE 70; RESP 15; TEMP 36.7; O2SAT 99
--- NOTE | 2024-03-26 12:47 | P.HPHOSP_ITS ---
History of Present Illness Date of Service: 03/26/24 Chief Complaint: foot pain, drainage, maggots The patient is a 68-year-old male with a past medical history of hypertension and CAD status post CABG in 2005 who [place] [facility] [place] with complaints of right foot pain, discharge and maggots. The patient reports he noticed this earlier today while changing his footwear. The patient denies any fevers or chills. Denies any shortness of breath or chest pain. Reports that he has not seen a provider in more than a year. In the emergency room the patient's workup showed leukocytosis of 14,000. X-ray of the foot was normal. He has been given a dose of IV Unasyn and now will be admitted for further care. Review of Systems 2 Review of Systems: Negative except HPI/interval history. [facility] Social History Alcohol intake: current Alcohol intake frequency: 3 or more drinks per day Alcohol type: beer and other Smoked in Last 30 Days: Yes Use of substances other than those prescribed or required for medical reasons: Yes Substance Use Type: Marijuana Substance Use Frequency: Socially Advance Directives: Yes Advance Directives on File: Yes Advance Directives Date on File: 01/19/23 Meds Allergies Allergy/AdvReac Type Severity Reaction Status Date / Time No Known Allergies Allergy Verified 03/26/24 09:44 Active Medications: Current Medications Acetaminophen (Acetaminophen 325 Mg Tablet) 650 mg PO Q6H PRN PRN Reason: Pain, Mild (Pain Scale 1-3), fever or headache Calcium Carbonate (Calcium Carbonate 750 Mg Tab.Chew) 750 mg PO Q4H PRN PRN Reason: Heartburn Enoxaparin Sodium (Enoxaparin Sodium 40 Mg/0.4 Ml Syringe) 40 mg SUBCUT Q24H ELOINA Vancomycin HCl 1,000 mg/ (Sodium Chloride) 270 mls @ 270 mls/hr IV Q12H ELOINA Lactated Ringer's (Lr) 1,000 mls @ 100 mls/hr IVCONT .Q10H ELOINA Stop: 03/27/24 08:44 Magnesium Hydroxide (Milk Of Magnesia 30 Ml Oral.Susp) 30 ml PO DAILY PRN PRN Reason: Constipation Melatonin (Melatonin 3 Mg Tablet) 6 mg PO BEDTIME PRN PRN Reason: Insomnia Pharmacy Consult (Consult Rx Vancomycin Dosing) 1 each MISCELLANE DAILY PRN PRN Reason: Consult order Sodium Chloride (0.9 % Sodium Chloride Flush 3 Ml Syringe) [facility] Home Medications ?Medication ?Instructions ?Recorded ?Confirmed ?Last Taken ?Type atorvastatin 40 mg tablet 40 mg PO DAILY 03/26/24 03/26/24 Unknown History Physical Exam 2 Vital Signs and Narrative: Vital Signs: Last Vital Signs Temp 98.0 F 03/26/24 12:30 Pulse 70 03/26/24 12:30 Resp 15 03/26/24 12:30 BP 159/82 H 03/26/24 12:30 Pulse Ox 99 03/26/24 12:30 O2 Del Method Room Air 03/26/24 12:30 BMI result Body Mass Index 29.5 Const: Other: Constitutional - Awake and Alert, No apparent distress, unkempt Eyes - PERRLA, EOMI Cardiovascular - S1S2, RRR, No edema Respiratory - Normal lung expansion, Normal respiratory effort, No respiratory distress, CTA bilaterally Gastrointestinal - NT / ND; +BS; No rebound or guarding - No CVA tenderness Extremities - right foot with erythema surrounding middle toes with purulent drainage; mild tenderness to palpation Musculoskeletal - Normal inspection, normal ROM Skin - Warm/Dry Neurological - Alert & oriented x3, No focal deficit Psychological - Appropriate affect Results Labs 03/26/24 10:07 03/26/24 10:07 Labs: Laboratory Results - last 24 hr 03/26/24 03/26/24 10:07 10:11 MCV 99.2 H MCH 34.9 H MCHC 35.2 RDW 13.3 Plt Count 187 MPV 9.9 Immature Gran % (Auto) 0.4 Neut % (Auto) 78.6 H Lymph % (Auto) 9.7 L [place] % (Auto) 7.9 Eos % (Auto) 2.9 Baso % (Auto) 0.5 Lymph # (Auto) 1.4 [place] # (Auto) 1.1 Eos # (Auto) 0.4 Baso # (Auto) 0.1 Abs Immat Gran (auto) 0.06 H Absolute Neuts (auto) 11.1 H Absolute Nucleated RBC 0.000 Nucleated RBC % (auto) 0.0 ESR 20 H Anion Gap 12 Estim Creat Clear Calc 99.2 Estimated GFR > 60 Random Glucose 117 H Lactic Acid 1.5 Calcium 9.0 Total Bilirubin 0.7 Direct Bilirubin 0.3 AST 29 ALT 33 Alkaline Phosphatase 55 C-Reactive Protein 0.86 H Total Protein 6.9 Albumin 3.6 Imaging Radiologist's Impressions: Impressions Foot X-Ray 03/26/24 10:24 IMPRESSION: Soft tissue edema. No acute osseous process. Assessment and Plan (1) Cellulitis: Status: Acute Plan This is a 68-year-old male with a past medical history of hypertension and CAD status post CABG. He presents with right foot pain and drainage. He will be admitted for cellulitis of the right foot. 1. Right foot cellulitis Has purulent drainage, we will check CT of the foot with contrast to rule out deeper infection Given IV Unasyn in the emergency room, will change antibiotics to vancomycin Possible surgical evaluation pending CT IVF 2. Hypertension He states he was previously on medications, can not see any unclean history We will monitor for now 3. CAD status post CABG On statin, we will continue also reports taking baby aspirin, we will continue Full Code DVT pptx - lovenox Patient with right foot infection and prior multiple amputations, at risk for limb loss and therefore will require close monitoring and treatment with IV antibiotics for the next 48 hours. Therefore will be admitted as inpatient. Quality Stroke Does the patient have a stroke diagnosis?: No VTE Prior VTE?: No VTE Risk Level:: Medical - moderate - high VTE Device Contraindication: N/A - Device Ordered VTE Drug Contraindication: N/A - Med Ordered
[2024-03-26] MEDS: iohexoL 350 MG/ML 100 ML INFUS..BTL IV (13:08)
[2024-03-26] MEDS: iohexoL 350 MG/ML 100 ML INFUS..BTL 85 ML IV (13:22)
[2024-03-26] MEDS: Enoxaparin Sodium 40 MG/0.4 ML SYRINGE SUBCUT (14:08)
[2024-03-26] MEDS: vancomycin/NS 2,000 MG/500 ML PLAST..BAG 250 MG IV (14:09)
[2024-03-26] MEDS: Lactated Ringers 1,000 ML 100 ML IVCONT (14:09)
--- NOTE | 2024-03-26 15:05 | PC.NURSE ---
obtained report from pallavi rn in the ed, pt transferred to [facility] and this nurse resumed care at 1500, patient a&ox3, oob from wheelchair to bed stand/pivot, currently denying pain, ivf running/vanco running per order, lungs clear- rr equal/non labored, call amaya within reach, will continue to monitor
[2024-03-26 15:22] VITALS: BP 155/75; PULSE 47; RESP 14; TEMP 36.6; O2SAT 100
--- NOTE | 2024-03-26 18:34 | PHA.MEDREC ---
Pharmacy Consult ? Medication Reconciliation Pharmacy has completed the medication reconciliation.
--- NOTE | 2024-03-26 18:51 | PC.NURSE ---
Pt seen in [facility] for admission risk assessment. Pt lives alone in a condo, reports occasional falls at home - yells out until neighbors hear him, they calll 911 and the FD assists pt off floor. Reports no visiting nursing services but expresses he probably needs one. He reports occasional etoh and marijuana use, does not show signs of withdrawal to this investment underwriter. Pt is an everyday smoker but declines nicotine replacement. Pt belongings include rolling walker and clothing and shoes. Pt A&Ox4, mumbled speech - poor dental hygiene, likely needs dentures. Lungs CTA when auscultating anterior chest, no signs of respiratory distress - respirations even and unlabored. intermittent dry cough. No GI/ sx or complaints - utilizing urinal at bedside. Pt reports only skin issue is the wound to his R foot that he discovered when changing footwear.
--- NOTE | 2024-03-26 19:33 | PC.NURSE ---
assumed care, pt reports dailydrinker of beer. Lastdrink 03/25. Per pt never had withdrawl. Ordered CIWA
--- NOTE | 2024-03-26 19:44 | PC.NURSE ---
ASSUMED CARE SUMMARY WRITTEN FOR RN
[2024-03-26 19:46] VITALS: BP 144/61; PULSE 64; RESP 16; TEMP 36.6; O2SAT 97
[2024-03-26 20:00] VITALS: BP 144/67; PULSE 55; RESP 18; TEMP 36; O2SAT 97
[2024-03-27] MEDS: vancomycin HCL 1,000 MG in 0.9 % Sodium Chloride 250 ML 270 MG IV ×2 (02:49→13:41)
[2024-03-27] MEDS: Lactated Ringers 1,000 ML 100 ML IVCONT (02:53)
[2024-03-27 03:20] VITALS: BP 132/66; PULSE 64; RESP 18; TEMP 36.4; O2SAT 94
--- NOTE | 2024-03-27 05:49 | PC.NURSE ---
Patient with hunched forward gait. Ambulates with walker and assist. Dyspneic on exertion.
[2024-03-27 06:40] LABS: Hemoglobin 12.3 g/dl (14.0-18.0); Mean Corpuscular HGB Conc 34.2 g/dl (31.0-36.0); Mean Corpuscular Hemoglobin 34.3 pg (27.0-33.0); Mean Corpuscular Volume 100.3 fL (80.0-98.0); Mean Platelet Volume 10.4 fL (9.4-12.4); Platelet Count 194 X10*3/uL (160-400); Red Blood Count 3.59 X10*6/uL (4.60-5.80); Red Cell Distribution Width 13.3 % (11.0-16.0); White Blood Count 8.5 X10*3/uL (4.8-10.8)
[2024-03-27 06:54] LABS: Anion Gap 12 (12-20); Blood Urea Nitrogen 12 mg/dL (9-16); Calcium 8.6 mg/dL (8.4-10.2); Carbon Dioxide 26 mmol/L (22-29); Chloride 106 mmol/L (96-108); Creatinine Clr Calc Pharmacy 103.7; Estimated Glomerular Filt Rate > 60; Glucose Random 100 mg/dL (60-115); Potassium 4.1 mmol/L (3.3-5.1); Sodium 140 mmol/L (135-145)
[2024-03-27 07:27] VITALS: BP 124/60; PULSE 56; RESP 14; TEMP 36.3; O2SAT 96
[2024-03-27] MEDS: 0.9 % Sodium Chloride Flush 3 ML SYRINGE IVFLUSH ×2 (08:50→13:48)
[2024-03-27] MEDS: Folic Acid 1 MG TABLET PO (08:53)
[2024-03-27] MEDS: Atorvastatin Calcium 40 MG TABLET PO (08:53)
[2024-03-27] MEDS: Aspirin Enteric Coated 81 MG TABLET.DR PO (08:53)
--- NOTE | 2024-03-27 09:18 | HO.PM.IMPN ---
Subjective Subjective Date of Service: 03/27/24 Interval History: seen and examined this AM foot better Review of Systems Negative except HPI/interval history. Physical Exam Vital Signs: Vital Signs: Last Vital Signs Temp 97.4 F 03/27/24 07:27 Pulse 56 03/27/24 07:27 Resp 14 03/27/24 07:27 BP 124/60 03/27/24 07:27 Pulse Ox 96 03/27/24 07:27 O2 Del Method Room Air 03/27/24 07:27 BMI result Body Mass Index 29.5 Const: Other: Constitutional - Awake and Alert, No apparent distress, unkempt Eyes - PERRLA, EOMI Cardiovascular - S1S2, RRR, No edema Respiratory - Normal lung expansion, Normal respiratory effort, No respiratory distress, CTA bilaterally Gastrointestinal - NT / ND; +BS; No rebound or guarding - No CVA tenderness Extremities - right foot with erythema surrounding middle toes with drainage -- slight improvement Musculoskeletal - Normal inspection, normal ROM Skin - Warm/Dry Neurological - Alert & oriented x3, No focal deficit Psychological - Appropriate affect Objective Data Active Medications Acetaminophen (Acetaminophen 325 Mg Tablet) 650 mg PO Q6H PRN PRN Reason: Pain, Mild (Pain Scale 1-3), fever or headache Aspirin (Aspirin Enteric Coated 81 Mg Tablet.) 81 mg PO DAILY [facility] Last Admin: 03/27/24 08:53 Dose: 81 mg Documented By: FROY Atorvastatin Calcium (Atorvastatin Calcium 40 Mg Tablet) 40 mg PO DAILY [facility] Last Admin: 03/27/24 08:53 Dose: 40 mg Documented By: FROY Calcium Carbonate (Calcium Carbonate 750 Mg Tab.Chew) 750 mg PO Q4H PRN PRN Reason: Heartburn Enoxaparin Sodium (Enoxaparin Sodium 40 Mg/0.4 Ml Syringe) 40 mg SUBCUT Q24H [facility] Last Admin: 03/26/24 14:08 Dose: 40 mg Documented By: NIA Folic Acid (Folic Acid 1 Mg Tablet) 1 mg PO DAILY [facility] Last Admin: 03/27/24 08:53 Dose: 1 mg Documented By: FROY Vancomycin HCl 1,000 mg/ (Sodium Chloride) 270 mls @ 270 mls/hr IV Q12H [facility] Last Infusion: 03/27/24 05:16 Dose: Infused Documented By: JAMEY Magnesium Hydroxide (Milk Of Magnesia 30 Ml Oral.Susp) 30 ml PO DAILY PRN PRN Reason: Constipation Melatonin (Melatonin 3 Mg Tablet) 6 mg PO BEDTIME PRN PRN Reason: Insomnia Pharmacy Consult (Consult Rx Vancomycin Dosing) 1 each MISCELLANE DAILY PRN PRN Reason: Consult order Sodium Chloride (0.9 % Sodium Chloride Flush 3 Ml Syringe) [facility] Last Admin: 03/27/24 08:50 Dose: 3 ml Documented By: FROY Labs 03/27/24 05:51 03/27/24 05:51 Labs: Laboratory Results - last 24 hr 03/26/24 03/26/24 03/27/24 10:07 10:11 05:51 MCV 99.2 H 100.3 H MCH 34.9 H 34.3 H MCHC 35.2 34.2 RDW 13.3 13.3 Plt Count 187 194 MPV 9.9 10.4 Immature Gran % (Auto) 0.4 Neut % (Auto) 78.6 H Lymph % (Auto) 9.7 L [place] % (Auto) 7.9 Eos % (Auto) 2.9 Baso % (Auto) 0.5 Lymph # (Auto) 1.4 [place] # (Auto) 1.1 Eos # (Auto) 0.4 Baso # (Auto) 0.1 Abs Immat Gran (auto) 0.06 H Absolute Neuts (auto) 11.1 H Absolute Nucleated RBC 0.000 0.000 Nucleated RBC % (auto) 0.0 0.0 ESR 20 H Anion Gap 12 12 Estim Creat Clear Calc 99.2 103.7 Estimated GFR > 60 Random Glucose 117 H Lactic Acid 1.5 Calcium 9.0 Total Bilirubin 0.7 Direct Bilirubin 0.3 AST 29 ALT 33 Alkaline Phosphatase 55 C-Reactive Protein 0.86 H Total Protein 6.9 Albumin 3.6 03/27/24 03/27/24 05:51 05:51 MCV MCH MCHC RDW Plt Count MPV Immature Gran % (Auto) Neut % (Auto) Lymph % (Auto) [place] % (Auto) Eos % (Auto) Baso % (Auto) Lymph # (Auto) [place] # (Auto) Eos # (Auto) Baso # (Auto) Abs Immat Gran (auto) Absolute Neuts (auto) Absolute Nucleated RBC Nucleated RBC % (auto) ESR Anion Gap Estim Creat Clear Calc Cancelled Estimated GFR > 60 Cancelled Random Glucose 100 Lactic Acid Calcium 8.6 Total Bilirubin Direct Bilirubin AST ALT Alkaline Phosphatase C-Reactive Protein Total Protein Albumin Assessment and Plan (1) Cellulitis: Status: Acute Plan This is a 68-year-old male with a past medical history of hypertension and CAD status post CABG. He presents with right foot pain and drainage. He will be admitted for cellulitis of the right foot. 1. Right foot cellulitis CT negative for abscess continue vancomcyin, follow level, monitor renal function f/u cultures 2. Hypertension He states he was previously on medications, can not see any unclean history We will monitor for now 3. CAD status post CABG On statin, we will continue also reports taking baby aspirin, we will continue Full Code DVT pptx - lovenox Patient with improvement in his cellulitis, but still with drainage, hence will required treatment with IV antibiotics. Quality Stroke Does the patient have a stroke diagnosis?: No VTE Prior VTE?: No VTE Risk Level:: Medical - moderate - high VTE Device Contraindication: N/A - Device Ordered VTE Drug Contraindication: N/A - Med Ordered
[2024-03-27 12:41] LABS: Vancomycin Random 12.5 mcg/mL (15-20)
[2024-03-27] MEDS: Enoxaparin Sodium 40 MG/0.4 ML SYRINGE SUBCUT (13:40)
[2024-03-27 15:32] VITALS: BP 143/65; PULSE 52; RESP 18; TEMP 36.6; O2SAT 97
--- NOTE | 2024-03-27 15:41 | MHC.CM.PN ---
IMM delivered. Patient lives in a condo alone. Ambulates w/ a rollator. Has a cane as well. Indp w/ hygiene. PCP @ [facility] on [address] in [place], cannot recall providers name Completed HCP naming his sister as [facility]. DP: Pending further evaluation by surgery team and likely PT. Patient's goal is home w/ services. Preference to [facility]. Referral sent via [facility]. CM will continue to follow.
[2024-03-27 19:23] VITALS: BP 143/65; PULSE 58; RESP 18; TEMP 36.8; O2SAT 98
[2024-03-28] MEDS: 0.9 % Sodium Chloride Flush 3 ML SYRINGE IVFLUSH ×2 (01:31→09:52)
[2024-03-28] MEDS: vancomycin HCL 1,000 MG in 0.9 % Sodium Chloride 250 ML 270 MG IV (01:31)
[2024-03-28 02:32] VITALS: BP 126/57; PULSE 70; RESP 16; TEMP 36.2; O2SAT 95
[2024-03-28] MEDS: guaiFENesin DM 200/20/10 ML 10 ML SYRUP PO ×2 (02:32→09:52)
--- NOTE | 2024-03-28 05:31 | PC.NURSE ---
Pt is AOx3, pleasant, able to make needs known. He has no c/o pain during this RNs shift. He did have a congested cough, productive at times, asked hospitalist for some cough medicine. Pt took (see MAR for med administration) w/some effectiveness. Pt states he is a smoker, lungs dim. Pt ambulates w/own walker. He uses the urinal beside. Call amaya within reach. Bed alarm on.
[2024-03-28 06:58] LABS: Creatinine Clr Calc Pharmacy 96.1; Estimated Glomerular Filt Rate > 60
[2024-03-28 08:00] VITALS: BP 135/62; PULSE 60; RESP 18; TEMP 36.7; O2SAT 94
--- NOTE | 2024-03-28 09:08 | PM.DS ---
DS: Providers Provider Date of Service: 03/29/24 Date of admission: 03/26/24 12:41 Primary care physician: Unknown Physician Consults: 03/26/24 20:38 Consult to Wound Care Routine Reason for consultation: R foot cellulitis DS: Diagnosis Discharge Diagnosis (1) Cellulitis: Status: Acute DS: Summary Hospital Course Hospital Course: admission hpi Chief Complaint: foot pain, drainage, maggots The patient is a 68-year-old male with a past medical history of hypertension and CAD status post CABG in 2005 who [place] [facility] [place] with complaints of right foot pain, discharge and maggots. The patient reports he noticed this earlier today while changing his footwear. The patient denies any fevers or chills. Denies any shortness of breath or chest pain. Reports that he has not seen a provider in more than a year. In the emergency room the patient's workup showed leukocytosis of 14,000. X-ray of the foot was normal. He has been given a dose of IV Unasyn and now will be admitted for further care. Hospital course He presented with a right foot wound and cellulitis. X-ray and CT showed no evidence of osteomyelitis or abscess. WBC was 14. He was treated with IV vancomycin; erythema has improved, pain is better, and WBC is down to 8. Blood cultures have been negative, and no culture from the wound is available. He was seen by vascular surgery with a recommendation for local wound care. Wound care recommends cleansing with Dakin's solution, lightly packing the web space with Dakin's moist gauze, and wrapping with an ABD pad and dry gauze. Change daily. Antibiotics will be changed to PO doxycycline 100 mg PO BID for 5 more days, and he will follow up with wound care, and to have visiting nurse assistance at home Time Attestation Discharge Coordination Time (in mins): 40 Quality: Safe Use of Opioids Does Pt have an Active Cancer Diagnosis on the Problem List?: No Quality: Stroke Does the patient have a stroke diagnosis?: No Physical Exam Vital Signs: Vital Signs: Selected Entries 03/29/24 07:06 Temperature 97.8 F Pulse Rate 66 Respiratory Rate 18 Blood Pressure 135/67 Pulse Oximetry 92 Oxygen Delivery Me thod Room Air Const: Other: Constitutional - Awake and Alert, No apparent distress, unkempt Eyes - PERRLA, EOMI Cardiovascular - S1S2, RRR, No edema Respiratory - Normal lung expansion, Normal respiratory effort, No respiratory distress, CTA bilaterally Gastrointestinal - NT / ND; +BS; No rebound or guarding - No CVA tenderness Extremities - right foot with erythema surrounding middle toes with drainage -- slight improvement Musculoskeletal - Normal inspection, normal ROM Skin - Warm/Dry Neurological - Alert & oriented x3, No focal deficit Psychological - Appropriate affect DS: Data Data Completed and Pending Labs on day of discharge: Laboratory Results - last 24 hr 03/27/24 03/28/24 12:05 05:24 Hold Purple Top SEE NOTE Creatinine 0.96 Estim Creat Clear Calc 96.1 Estimated GFR > 60 Random Vancomycin 12.5 L Preliminary micro results at discharge 03/26/24 10:11 Blood Culture - Preliminary Blood - Venous No growth after 24 hours. 03/26/24 10:07 Blood Culture - Preliminary Blood - Venous No growth after 24 hours. Discharge Plan Discharge Anticipated Discharge Date/Time: 03/29/24 14:49 Patient Disposition: Home Health Service Discharge Diagnosis: Cellulitis and infected wound of the foot Referrals: Kelly Jama MD [Physician] - 1 Week Physician,Unknown J [Physician] - 1 Week Discharge Medications: New doxycycline monohydrate 100 mg tablet 100 mg PO DAILY Qty: 10 0RF Continued atorvastatin 40 mg tablet 40 mg PO DAILY folic acid 1 mg tablet 1 mg PO DAILY aspirin 81 mg Tablet,Delayed Release (Dr/Ec) 81 mg PO DAILY Discharge Orders: Discharge Order (Routine); Ordered 03/29/24 Ordered By: Carlos Reid Diet: Advance to usual diet Activity on Discharge: As tolerated Stand Alone Forms: Patient Portal Discharge page Print Language: Hebrew Care Plan Goals: resolution of cellulitis and healing of the wound Health Concerns: cellulitis and wound of the foot Plan of Treatment: Cleanse with Dakins solution, Lightly pack webspace with Dakins moist gauze, wrap with ABD pad and dry gauze. Change daily. Follow up with the wound clinic take Doxycycline as recommended and follow up with your Doctor in a week Assessment: see Discharge Date/Time: 03/29/24 17:03
[2024-03-28] MEDS: Doxycycline Hyclate 100 MG in 0.9 % Sodium Chloride 250 ML 166.67 MG IV (09:50)
[2024-03-28] MEDS: Folic Acid 1 MG TABLET PO (09:52)
[2024-03-28] MEDS: Aspirin Enteric Coated 81 MG TABLET.DR PO (09:52)
[2024-03-28] MEDS: Atorvastatin Calcium 40 MG TABLET PO (09:52)
[2024-03-28] MEDS: Enoxaparin Sodium 40 MG/0.4 ML SYRINGE SUBCUT (11:54)
[2024-03-28 12:34] LABS: Vancomycin Random 13.1 mcg/mL (15-20)
--- NOTE | 2024-03-28 13:07 | P.CONGS_ITS ---
History of Present Illness Consult details Consult date: 03/28/24 Reason for consult: wound care Narrative: Very pleasant 68-year-old gentleman presents for evaluation regarding nonhealing right foot ulcer. Presented to the hospital with some drainage in concerned that there may be maggots. He was subsequently worked up and brought into the hospital. He was placed on IV Unasyn. He now presents to us for vascular evaluation. Of note he was seen by wound care nurse. Review of Systems 2 Review of Systems: Yes all other systems are reviewed and are negative Constitutional: Constitutional: Reports no additional constitutional complaints ENT: Reports Normal hearing present Cardiovascular: Cardiovascular: Denies chest pain, Denies chest pain at rest, Denies chest pain with activity and Denies pedal edema Respiratory: Respiratory: Denies cough Gastrointestinal: Gastrointestinal: Denies abdominal pain Musculoskeletal: Musculoskeletal: Denies abnormal gait, Denies muscle cramps and Denies radiating pain into limb Integumentary/Breasts: Skin/Breast: Denies skin ulcer and Denies wounds Neurologic: Reports Normal hearing present and Denies abnormal gait Psychiatric: Psychiatric: Reports no additional psychiatric complaints [facility] Social History Social History Household Members: None Housing: Condominium Do you presently have visiting nurse or other home services: No (pt states he is thinking he probably needs one ) Alcohol intake: current Alcohol intake frequency: 3 or more drinks per day Alcohol type: beer and other Patient Tobacco Use Status: Current everyday Tobacco user Tobacco use type: Cigarette Smoked in Last 30 Days: Yes Use of substances other than those prescribed or required for medical reasons: Yes Substance Use Type: Marijuana Substance Use Frequency: Occasionally Currently Displaying Signs/Symptoms of Drug Intoxication Withdrawal: No Have you been hit, kicked, punched, or otherwise hurt by someone within the past year? If so, by whom?: No Do you feel safe in your current relationship?: No Current Relationship Is there a partner from a previous relationship who is making you feel unsafe now?: No Are you made to feel afraid or neglected: No Advance Directives: Yes Advance Directives on File: Yes Advance Directives Date on File: 01/19/23 Do you have a plan to hurt others: No Plan Recently lost weight without trying: No Nutrition Risks: No Nutritional Risk Poor oral hygiene: Yes service: No Meds Allergies Allergy/AdvReac Type Severity Reaction Status Date / Time No Known Allergies Allergy Verified 03/26/24 09:44 Active Medications: Current Medications Acetaminophen (Acetaminophen 325 Mg Tablet) 650 mg PO Q6H PRN PRN Reason: Pain, Mild (Pain Scale 1-3), fever or headache Aspirin (Aspirin Enteric Coated 81 Mg Tablet.) 81 mg PO DAILY [facility] Last Admin: 03/28/24 09:52 Dose: 81 mg Atorvastatin Calcium (Atorvastatin Calcium 40 Mg Tablet) 40 mg PO DAILY [facility] Last Admin: 03/28/24 09:52 Dose: 40 mg Calcium Carbonate (Calcium Carbonate 750 Mg Tab.Chew) 750 mg PO Q4H PRN PRN Reason: Heartburn Enoxaparin Sodium (Enoxaparin Sodium 40 Mg/0.4 Ml Syringe) 40 mg SUBCUT Q24H [facility] Last Admin: 03/28/24 11:54 Dose: 40 mg Folic Acid (Folic Acid 1 Mg Tablet) 1 mg PO DAILY [facility] Last Admin: 03/28/24 09:52 Dose: 1 mg Guaifenesin/Dextromethorphan (Guaifenesin Dm 200/20/10 Ml 10 Ml Syrup) 10 ml PO Q4H PRN PRN Reason: Cough Last Admin: 03/28/24 09:52 Dose: 10 ml Doxycycline Hyclate 100 mg/ (Sodium Chloride) 250 mls @ 166.67 mls/hr IV Q12H [facility] Last Infusion: 03/28/24 11:56 Dose: 167 mls/hr Magnesium Hydroxide (Milk Of Magnesia 30 Ml Oral.Susp) 30 ml PO DAILY PRN PRN Reason: Constipation Melatonin (Melatonin 3 Mg Tablet) 6 mg PO BEDTIME PRN PRN Reason: Insomnia Pharmacy Consult (Consult Rx Vancomycin Dosing) 1 each MISCELLANE DAILY PRN PRN Reason: Consult order Sodium Chloride (0.9 % Sodium Chloride Flush 3 Ml Syringe) 3 ml IVFLUSH QSHIFT [facility] Last Admin: 03/28/24 09:52 Dose: 3 ml Home Medications ?Medication ?Instructions ?Recorded ?Confirmed ?Last Taken ?Type aspirin 81 mg tablet,delayed 81 mg PO DAILY 03/26/24 03/26/24 Unknown History release atorvastatin 40 mg tablet 40 mg PO DAILY 03/26/24 03/26/24 Unknown History folic acid 1 mg tablet 1 mg PO DAILY 03/26/24 03/26/24 Unknown History Physical Exam 2 Vital Signs: Vital Signs: Last Vital Signs Temp 98.1 F 03/28/24 08:00 Pulse 60 03/28/24 08:00 Resp 18 03/28/24 08:00 BP 135/62 03/28/24 08:00 Pulse Ox 94 03/28/24 08:00 O2 Del Method Room Air 03/28/24 08:00 BMI result Body Mass Index 29.5 Const: General: cooperative, healthy appearing and comfortable O rientation/consciousness: oriented to person, oriented to place and oriented to time HEENT: Head: Yes normal to inspection Neck: Neck: Yes normal visual inspection Carotids: no bruits Chest: Chest palpation & inspection: normal inspection of the chest Resp: Effort & Inspection: normal respiratory effort and able to speak in complete sentences Auscultation: clear to auscultation bilaterally, no crackles, no rales, no rhonchi and no wheezes Cardio: Rate: regular rate Rhythm: regular rhythm Heart sounds: S1 normal heart sound present and S2 normal heart sound present Bruits: no carotid bruits Peripheral pulses: Peripheral pulses 2+ throughout GI: Inspection: Yes normal to inspection Skin: Other: Right lower extremity no active ulceration. No evidence of maggots. Wounds: no wounds Hair: normal Neuro: General: oriented to person, oriented to place and oriented to time Cranial nerves: Yes CN's II-XII intact bilaterally and Yes Normal hearing present Cognition (Neuro): normal cognition Motor exam (neuro): 5/5 motor strength present throughout Extrem: Other: venous exam: No significant superficial varicosities or spider telangiectasias, minimal edema General: No clubbing, No cyanosis and No edema Psych: Appearance: grossly normal Mental Status: mental status grossly normal Speech and movement: Normal speech and movement present Results Labs 03/27/24 05:51 03/28/24 05:24 Labs: Abnormal lab results 03/28/24 Range/Units 12:07 Random Vancomycin 13.1 L (15-20) mcg/mL BMP 03/28/24 05:24 Creatinine 0.96 All other labs normal. Assessment and Plan (1) Cellulitis: Qualifiers: Site of cellulitis: extremity Site of cellulitis of extremity: lower extremity Laterality: right Qualified Code(s): L03.115 - Cellulitis of right lower limb Status: Acute Plan In short patient had evidence of maggots in the lower extremities. At the current time no active evidence of this. Would continue with Dakin solution or Betadine paint daily. Local wound care and hygiene was discussed with the patient. There is no evidence of vascular disease as he does have palpable pulses. He can see us on an as-needed basis. Thank you for allowing us to assist in his care. If there are any questions or concerns please do not hesitate to contact us. Procedures Date of Service Date of Service: 03/28/24
--- NOTE | 2024-03-28 14:04 | HO.WOUND ---
Wound Consult: Initial 68yr old?[place] [facility] [place] - See progress notes and H&P for detailed history.? Wound consult placed for Right webspace wound with maggots.? Patient agreeable to assessment and photo documentation.? Live maggot noted - terminated on bedside. Cleansed with Betadine and saline dressing placed - contact precautions initiated and TT to Dr. Reid to order Dakins. Patient to follow up with outpt wound clinic for continued care and treatment. Right Foot 2nd webpace Etiology: ??Ulceration with Maggots Measurements: 1cm x 1cm x 0.1cm Wound Bed: pink moist tissue scant slough noted - live maggot noted Drainage / Odor: dried crusted drainage noted Edges: ? mirrored Mallorie wound: ? dried crusting drainage - Dry hyperpigmentation noted - No Induration, Fluctuance or Warmth noted Pain: painful per patient Goals of Treatment: ? Dakins to treat Maggot infestation Recommendations: 1. Turn and Reposition every 2 hours and as needed for patient comfort.? Use pillows or wedges to support off loading positions. 2. Off Load all bony prominences with use of pillows and heel boots if needed.? Apply Preventative foams where needed. ? 3. Monitor for incontinence and moisture control, use barrier creams when needed for prevention and treatment. 4. Provide adequate and supplemental nutrition.? 5. Order or Continue low air loss mattress. 6. When applicable maintain blood glucose levels per Providers order. 7. Right 2nd Webspace - Cleanse with Dakins, Lightly pack webspace with Dakins moist gauze, wrap with ABD pad and dry gauze. Change daily. Re-consult wound care Nurse for wound deterioration or wound changes.
--- NOTE | 2024-03-28 14:43 | MHC.CM.PN ---
per rounds pt will not need a vna when dcd ?dc today
[2024-03-28 15:27] VITALS: BP 148/70; PULSE 52; RESP 18; TEMP 36.3; O2SAT 98
--- NOTE | 2024-03-28 16:40 | HO.PM.IMPN ---
Subjective Subjective Date of Service: 03/28/24 Interval History: seen and examined this AM rednes is better, wound seems better Physical Exam Vital Signs: Vital Signs: Last Vital Signs Temp 97.4 F 03/28/24 15:27 Pulse 52 03/28/24 15:27 Resp 18 03/28/24 15:27 BP 148/70 H 03/28/24 15:27 Pulse Ox 98 03/28/24 15:27 O2 Del Method Room Air 03/28/24 15:27 BMI result Body Mass Index 29.5 Const: Other: Constitutional - Awake and Alert, No apparent distress, unkempt Eyes - PERRLA, EOMI Cardiovascular - S1S2, RRR, No edema Respiratory - Normal lung expansion, Normal respiratory effort, No respiratory distress, CTA bilaterally Gastrointestinal - NT / ND; +BS; No rebound or guarding - No CVA tenderness Extremities - right foot with erythema surrounding middle toes with drainage -- Musculoskeletal - Normal inspection, normal ROM Skin - Warm/Dry Neurological - Alert & oriented x3, No focal deficit Psychological - Appropriate affect Objective Data Active Medications Acetaminophen (Acetaminophen 325 Mg Tablet) 650 mg PO Q6H PRN PRN Reason: Pain, Mild (Pain Scale 1-3), fever or headache Aspirin (Aspirin Enteric Coated 81 Mg Tablet.) 81 mg PO DAILY [facility] Last Admin: 03/28/24 09:52 Dose: 81 mg Documented By: TRISTAN Atorvastatin Calcium (Atorvastatin Calcium 40 Mg Tablet) 40 mg PO DAILY [facility] Last Admin: 03/28/24 09:52 Dose: 40 mg Documented By: TRISTAN Calcium Carbonate (Calcium Carbonate 750 Mg Tab.Chew) 750 mg PO Q4H PRN PRN Reason: Heartburn Enoxaparin Sodium (Enoxaparin Sodium 40 Mg/0.4 Ml Syringe) 40 mg SUBCUT Q24H [facility] Last Admin: 03/28/24 11:54 Dose: 40 mg Documented By: TRISTAN Folic Acid (Folic Acid 1 Mg Tablet) 1 mg PO DAILY [facility] Last Admin: 03/28/24 09:52 Dose: 1 mg Documented By: TRISTAN Guaifenesin/Dextromethorphan (Guaifenesin Dm 200/20/10 Ml 10 Ml Syrup) 10 ml PO Q4H PRN PRN Reason: Cough Last Admin: 03/28/24 09:52 Dose: 10 ml Documented By: TRISTAN Doxycycline Hyclate 100 mg/ (Sodium Chloride) 250 mls @ 166.67 mls/hr IV Q12H [facility] Last Infusion: 03/28/24 13:30 Dose: Infused Documented By: TRISTAN Magnesium Hydroxide (Milk Of Magnesia 30 Ml Oral.Susp) 30 ml PO DAILY PRN PRN Reason: Constipation Melatonin (Melatonin 3 Mg Tablet) 6 mg PO BEDTIME PRN PRN Reason: Insomnia Sodium Chloride (0.9 % Sodium Chloride Flush 3 Ml Syringe) 3 ml IVFLUSH QSHIFT [facility] Last Admin: 03/28/24 09:52 Dose: 3 ml Documented By: TRISTAN Labs 03/27/24 05:51 03/29/24 05:45 Labs: Laboratory Results - last 24 hr 03/28/24 03/28/24 05:24 12:07 Hold Purple Top SEE NOTE Estim Creat Clear Calc 96.1 Estimated GFR > 60 Random Vancomycin 13.1 L Microbiology Microbiology Results: Microbiology 03/26/24 10:11 Blood Culture - Preliminary Blood - Venous No growth after 48 hours. 03/26/24 10:07 Blood Culture - Preliminary Blood - Venous No growth after 48 hours. Assessment and Plan (1) Cellulitis: Status: Acute Plan This is a 68-year-old male with a past medical history of hypertension and CAD status post CABG. He presents with right foot pain and drainage. He will be admitted for cellulitis of the right foot. 1. Right foot cellulitis CT negative for abscess, magot noted continue vancomcyin, chcange to doxy Dakin to wound to kill magot vascular consult cultures so far negative 2. Hypertension He states he was previously on medications, can not see any unclean history norvasc if trending high 3. CAD status post CABG On statin, we will continue also reports taking baby aspirin, we will continue Full Code DVT pptx - lovenox Patient with improvement in his cellulitis, but still with drainage, hence will required treatment with IV antibiotics. Quality Stroke Does the patient have a stroke diagnosis?: No VTE Prior VTE?: No VTE Risk Level:: Medical - moderate - high VTE Device Contraindication: N/A - Device Ordered VTE Drug Contraindication: N/A - Med Ordered
[2024-03-28 19:15] VITALS: BP 137/77; PULSE 60; RESP 18; TEMP 36.4; O2SAT 97
--- NOTE | 2024-03-28 19:48 | PC.NURSE ---
MD Darrel alvarado re pt vanco trough with no vanco ordered. Also no Betadine or Dakins ordered for wound. Per MD will continue IV doxycycline.
[2024-03-28] MEDS: Doxycycline Hyclate 100 MG in 0.9 % Sodium Chloride 250 ML 166 MG IV (20:50)
[2024-03-29] MEDS: guaiFENesin DM 200/20/10 ML 10 ML SYRUP PO (02:07)
[2024-03-29 03:01] VITALS: BP 168/76; PULSE 65; RESP 18; TEMP 36.1; O2SAT 93
[2024-03-29 07:06] VITALS: BP 135/67; PULSE 66; RESP 18; TEMP 36.6; O2SAT 92
[2024-03-29 07:17] LABS: Creatinine Clr Calc Pharmacy 107.3; Estimated Glomerular Filt Rate > 60
[2024-03-29] MEDS: Aspirin Enteric Coated 81 MG TABLET.DR PO (09:21)
[2024-03-29] MEDS: Atorvastatin Calcium 40 MG TABLET PO (09:21)
[2024-03-29] MEDS: Folic Acid 1 MG TABLET PO (09:21)
[2024-03-29] MEDS: Doxycycline Hyclate 100 MG in 0.9 % Sodium Chloride 250 ML 250 MG IV (09:22)
[2024-03-29] MEDS: 0.9 % Sodium Chloride Flush 3 ML SYRINGE IVFLUSH (09:22)
[2024-03-29] MEDS: Enoxaparin Sodium 40 MG/0.4 ML SYRINGE SUBCUT (13:06)
--- NOTE | 2024-03-29 14:50 | W.MHC.F2F ---
Service Date Service Date: 03/29/24 Encounter Date of encounter: 03/29/24 Reasons for Services Signs and symptoms assessed: wound of the foot Reason for long-term: wound care Homebound: Leaving the home is medically contraindicated at this time without the asist of a device and/or another person due th the listed conditions above and below. Reason homebound: pain with ambulation Homebound supporting statement: homebound due to cellulitis and ulcer of the foot making ambulation difficult and therefore needs the assistance of another person Certification: Based on the above findings, I certify that this patient is confined to the home and needs intermittent long-term care, physical therapy and/or speech therapy, or continues to need occupational therapy. The patient is under my care, and I have initiated the establishment of the plan of care. The patient will be followed by a physician who will periodically review the plan of care. Time Spent With Patient Time: Total time managing care of this patient today ____ minutes.
--- NOTE | 2024-03-29 15:08 | MHC.CM.PN ---
pt dcd today mdordered a vna
[2024-03-29 15:26] VITALS: BP 145/72; PULSE 56; RESP 18; TEMP 36.3; O2SAT 94
--- NOTE | 2024-03-29 16:19 | MHC.CM.PN ---
pt aware that we r unable to confirm a vna for pt due tostaffing and payor source and that iwill reach out to him tomorrow neymar is pending as well as [facility] [place] care dr deng aware
--- NOTE | 2024-03-29 16:22 | MHC.CM.PN ---
\pt has been taught and been sent home with supplies pt says he has family that can help to fill in for the vna
--- NOTE | 2024-03-29 16:24 | HO.PM.IMPN ---
Subjective Subjective Date of Service: 03/29/24 Interval History: seen and examined this AM redness and wound better, no magots noted Review of Systems Respiratory Respiratory: Denies cough Physical Exam Vital Signs: Vital Signs: Last Vital Signs Temp 97.4 F 03/29/24 15:26 Pulse 56 03/29/24 15:26 Resp 18 03/29/24 15:26 BP 145/72 H 03/29/24 15:26 Pulse Ox 94 03/29/24 15:26 O2 Del Method Room Air 03/29/24 15:26 BMI result Body Mass Index 29.5 Const: Other: Constitutional - Awake and Alert, No apparent distress, unkempt Eyes - PERRLA, EOMI Cardiovascular - S1S2, RRR, No edema Respiratory - Normal lung expansion, Normal respiratory effort, No respiratory distress, CTA bilaterally Gastrointestinal - NT / ND; +BS; No rebound or guarding - No CVA tenderness Extremities - right foot with erythema surrounding middle toes with drainage -- Musculoskeletal - Normal inspection, normal ROM Skin - Warm/Dry Neurological - Alert & oriented x3, No focal deficit Psychological - Appropriate affect General: cooperative, healthy appearing and comfortable Orientation/consciousness: oriented to person, oriented to place and oriented to time HEENT: Head: Yes normal to inspection Neck: Neck: Yes normal visual inspection Carotids: no bruits Chest: Chest palpation & inspection: normal inspection of the chest Resp: Effort & Inspection: normal respiratory effort and able to speak in complete sentences Auscultation: clear to auscultation bilaterally, no crackles, no rales, no rhonchi and no wheezes Cardio: Rate: regular rate Rhythm: regular rhythm Heart sounds: S1 normal heart sound present and S2 normal heart sound present Bruits: no carotid bruits Peripheral pulses: Peripheral pulses 2+ throughout GI: Inspection: Yes normal to inspection Skin: Other: Right lower extremity no active ulceration. No evidence of maggots. Wounds: no wounds Hair: normal Neuro: General: oriented to person, oriented to place and oriented to time Cranial nerves: Yes CN's II-XII intact bilaterally Cognition (Neuro): normal cognition Motor exam (neuro): 5/5 motor strength present throughout Extrem: Other: venous exam: No significant superficial varicosities or spider telangiectasias, minimal edema General: No clubbing, No cyanosis and No edema Psych: Appearance: grossly normal Mental Status: mental status grossly normal Speech and movement: Normal speech and movement present Objective Data Active Medications Acetaminophen (Acetaminophen 325 Mg Tablet) 650 mg PO Q6H PRN PRN Reason: Pain, Mild (Pain Scale 1-3), fever or headache Aspirin (Aspirin Enteric Coated 81 Mg Tablet.) 81 mg PO DAILY [facility] Last Admin: 03/29/24 09:21 Dose: 81 mg Documented By: RICK Atorvastatin Calcium (Atorvastatin Calcium 40 Mg Tablet) 40 mg PO DAILY [facility] Last Admin: 03/29/24 09:21 Dose: 40 mg Documented By: RICK Calcium Carbonate (Calcium Carbonate 750 Mg Tab.Chew) 750 mg PO Q4H PRN PRN Reason: Heartburn Enoxaparin Sodium (Enoxaparin Sodium 40 Mg/0.4 Ml Syringe) 40 mg SUBCUT Q24H [facility] Last Admin: 03/29/24 13:06 Dose: 40 mg Documented By: RICK Folic Acid (Folic Acid 1 Mg Tablet) 1 mg PO DAILY [facility] Last Admin: 03/29/24 09:21 Dose: 1 mg Documented By: RICK Guaifenesin/Dextromethorphan (Guaifenesin Dm 200/20/10 Ml 10 Ml Syrup) 10 ml PO Q4H PRN PRN Reason: Cough Last Admin: 03/29/24 02:07 Dose: 10 ml Documented By: MAUREEN Doxycycline Hyclate 100 mg/ (Sodium Chloride) 250 mls @ 166.67 mls/hr IV Q12H [facility] Last Infusion: 03/29/24 10:57 Dose: Infused Documented By: RICK Magnesium Hydroxide (Milk Of Magnesia 30 Ml Oral.Susp) 30 ml PO DAILY PRN PRN Reason: Constipation Melatonin (Melatonin 3 Mg Tablet) 6 mg PO BEDTIME PRN PRN Reason: Insomnia Sodium Chloride (0.9 % Sodium Chloride Flush 3 Ml Syringe) 3 ml IVFLUSH QSHIFT [facility] Last Admin: 03/29/24 09:22 Dose: 3 ml Documented By: RICK Sodium Hypochlorite (Sodium Hypochlorite 0.25% 473 Ml Solution) 1 appl TOPICAL DAILY [facility] Labs 03/27/24 05:51 03/29/24 05:45 Labs: Laboratory Results - last 24 hr 07/16/24 05:45 Estim Creat Clear Calc 107.3 Estimated GFR > 60 Assessment and Plan (1) Cellulitis: Status: Acute Plan This is a 68-year-old male with a past medical history of hypertension and CAD status post CABG. He presents with right foot pain and drainage. He will be admitted for cellulitis of the right foot. 1. Right foot cellulitis CT negative for abscess, magot noted continue vancomcyin, chcange to doxy for dc Dakin to wound to kill magot vascular consult input noted cultures so far negative 2. Hypertension He states he was previously on medications, can not see any unclean history norvasc if trending high 3. CAD status post CABG On statin, we will continue also reports taking baby aspirin, we will continue Full Code DVT pptx - lovenox Patient with improvement in his cellulitis, but still with drainage, hence will required treatment with IV antibiotics. Quality Stroke Does the patient have a stroke diagnosis?: No VTE Prior VTE?: No VTE Risk Level:: Medical - moderate - high VTE Device Contraindication: N/A - Device Ordered VTE Drug Contraindication: N/A - Med Ordered
--- NOTE | 2024-03-30 14:51 | MHC.CM.PN ---
Addendum entered by Missy Cevallos RN 03/30/24 16:11: Per [facility], patient is not active w/ PCP. Unable to accept. Patient aware and will f/u with [facility] [place] wound clinic. Referral was faxed to wound clinic and patient was provided w/ phone number to wound clinic. MD aware. Original Note: [facility] will provide SN/wound care. CM called patient to inform.
== END 2024-03-29 17:03 | disposition home health service (06) | DRG 603 ==
LOC: HO.ED 13:07 → HO.EDOVER 13:10 → HO.S3 19:32
PROVIDERS: Admitting Provider Family Medicine; Emergency Provider Emergency Medicine Emergency Medical Services; PCP Pediatrics; Visit Provider Internal Medicine
DX: L03.115 Cellulitis of right lower limb (principal); B87.1 Wound myiasis; I25.10 Atherosclerotic heart disease of native coronary artery without angina pectoris; I10 Essential (primary) hypertension; Z95.1 Presence of aortocoronary bypass graft; Z79.82 Long term (current) use of aspirin; Z79.899 Other long term (current) drug therapy
CPT/HCPCS: 36415; 73630; 73701; 80048; 80076; 80202; 82565; 83605; 85025; 85027; 85652; 86140; 87040; 99285; J0295; J1650; J3370; J7120; Q9967

== ENCOUNTER → 2024-03-26 09:47 | Outpatient (BNV) | payer MEDICARE, SELFPAY | PROVIDERS: Emergency Provider Emergency Medicine Emergency Medical Services; Visit Provider Family Medicine | DX: L03.115 Cellulitis of right lower limb (principal) | CPT/HCPCS: 99223; 99232; 99239; G0180 ==

== ENCOUNTER → 2024-03-26 12:41 | Outpatient (BNV) | payer MEDICARE, SELFPAY | PROVIDERS: Admitting Provider Family Medicine; Emergency Provider Emergency Medicine Emergency Medical Services; Visit Provider Surgery Vascular Surgery | DX: L03.115 Cellulitis of right lower limb (principal) | CPT/HCPCS: 99222 ==